=== PATIENT | female | born 1970 | race Caucasian/White ===

== ENCOUNTER → 2017-12-19 14:56 | Outpatient (CLI) | payer BC, SELFPAY ==
[2017-12-19 16:05] LABS: ALB/GLOB Ratio 1.2 RATIO (0.9-2.4); AST(SGOT) 10 U/L (15-37); Alanine Aminotransfer ALT/SGPT 22 U/L (13-56); Albumin, Serum 3.9 g/dL (3.2-5.0); Alkaline Phosphatase 49 U/L (45-117); Anion Gap 10 (5-15); BUN 17 mg/dL (7-18); BUN/Creat Ratio 20.6 RATIO (10-20); Calcium,Total 8.6 mg/dL (8.5-10.1); Chloride 104 mmol/L (98-107); Creatinine, Serum 0.82 mg/dL (0.55-1.02); EST Glomerular Filtration Rate 78 mL/min (>60); Est Glom Filt Rate - Afr Amer 94 mL/min (>60); Globulin 3.3 g/dL (2.2-4.2); Glucose 97 mg/dL (74-106); Potassium 3.4 mmol/L (3.5-5.1); Protein, Total 7.2 g/dL (6.4-8.2); Sodium Level 142 mmol/L (136-145)
[2017-12-19 16:13] LABS: Vitamin D,25 Hydroxy 73.1 ng/mL (19.95-100.01)
== END ==
PROVIDERS: Family Provider Internal Medicine; PCP Internal Medicine; Visit Provider Internal Medicine Endocrinology, Diabetes & Metabolism
DX: M85.9 Disorder of bone density and structure, unspecified (principal); E55.9 Vitamin D deficiency, unspecified; E83.42 Hypomagnesemia
CPT/HCPCS: 36415; 80053; 82306; 83735

== ENCOUNTER → 2018-02-20 13:35 | Outpatient (CLI) | payer BC, SELFPAY ==
--- NOTE | 2018-02-20 13:37 | BI_ITS ---
MAMMOGRAPHY - BILATERAL SCREENING REASON FOR EXAM: Female, 48 years old. Routine annual screening examination. PERTINENT HISTORY: Non-contributory. Prior right breast ultrasound biopsy. TECHNIQUE: Digital bilateral breast renny (3D mammographic acquisition) in the CC and MLO projections. 2-D mediolateral oblique (MLO) and craniocaudad (CC) views of both breasts were obtained. CAD: Full Field Digital Mammography with Computer Added Detection was performed. COMPARISON: Comparison is made with prior examination dated June 06, 2017 and October 08, 2016. FINDINGS: Breast Composition: The breasts are extremely dense, which lowers the sensitivity of mammography. There are no dominant masses or suspicious calcifications. A tissue clip marker is seen in the lateral retroareolar region of the right breast. Stable bilateral benign-appearing breast calcifications. No other significant abnormalities are identified. There has been no significant change since the prior study. BI/SCREENING MAMM (CAD), BILAT IMPRESSION: Stable bilateral screening mammogram. Yearly follow-up mammogram recommended. (A) ASSESSMENT CATEGORY: BIRADS Category 2: Benign. A letter regarding these results will be sent to the patient by the facility within 30 days. Approximately 10% of breast cancers are not detected by mammography. A normal mammogram should not delay biopsy of a clinically suspicious abnormality. [id number] Electronically Signed: Paulie Carrillo MD at 15:46 EDT Tel [phone], Service support ,
== END ==
PROVIDERS: Family Provider Internal Medicine; PCP Internal Medicine; Visit Provider Obstetrics & Gynecology
DX: Z12.31 Encounter for screening mammogram for malignant neoplasm of breast (principal)
CPT/HCPCS: 77062; 77063; 77067; G0279

== ENCOUNTER → 2018-07-28 07:08 | Outpatient (CLI) | payer BC, SELFPAY ==
[2018-07-28 11:11] LABS: ALB/GLOB Ratio 0.9 RATIO (0.9-2.4); AST(SGOT) 9 U/L (15-37); Alanine Aminotransfer ALT/SGPT 20 U/L (13-56); Albumin, Serum 3.5 g/dL (3.2-5.0); Alkaline Phosphatase 66 U/L (45-117); Anion Gap 9 (5-15); BUN 20 mg/dL (7-18); Calcium,Total 8.8 mg/dL (8.5-10.1); Chloride 105 mmol/L (98-107); Creatinine, Serum 0.65 mg/dL (0.55-1.02); EST Glomerular Filtration Rate 103 mL/min (>60); Est Glom Filt Rate - Afr Amer 125 mL/min (>60); Globulin 3.7 g/dL (2.2-4.2); Glucose 74 mg/dL (74-106); Magnesium 2.2 mg/dL (1.6-2.6); Potassium 4.1 mmol/L (3.5-5.1); Protein, Total 7.2 g/dL (6.4-8.2); Sodium Level 142 mmol/L (136-145); Thyroid Stim Hormone (TSH) 1.66 uIU/mL (0.358-3.74)
[2018-07-29 12:11] LABS: Vitamin D,25 Hydroxy 58.1 ng/mL (29.95-100.01)
== END ==
PROVIDERS: Family Provider Internal Medicine; PCP Internal Medicine; Visit Provider Internal Medicine Endocrinology, Diabetes & Metabolism
DX: E04.9 Nontoxic goiter, unspecified (principal); E55.9 Vitamin D deficiency, unspecified; E61.2 Magnesium deficiency
CPT/HCPCS: 36415; 80053; 82306; 83735; 84443

== ENCOUNTER → 2019-02-03 11:22 | Outpatient (CLI) | payer BC, SELFPAY ==
[2019-02-06 16:56] LABS: HPV Reflexed? NOT INDICATED
== END ==
PROVIDERS: Visit Provider Obstetrics & Gynecology
DX: Z12.4 Encounter for screening for malignant neoplasm of cervix (principal)
CPT/HCPCS: 88175; G0145

== ENCOUNTER → 2019-02-23 | Outpatient (CLI) | payer BC, SELFPAY ==
--- NOTE | 2019-02-23 17:17 | RAD_ITS ---
STUDY: X-RAY CHEST REASON FOR EXAM: Female, 49 years old. Cough and chest pain TECHNIQUE: Frontal and lateral views of the chest. COMPARISON: October 03, 2017 FINDINGS: Lungs are hyperaerated. The lungs are clear and expanded. There is no demonstrated pleural abnormality. Normal size heart. Normal mediastinum and yoanna. Normal visualized pulmonary arteries. Normal visualized aortic arch and descending thoracic aorta. Normal visualized thoracic spine. Normal visualized ribs, clavicles, and shoulders. There is no demonstrated abnormality of the visualized soft tissue structures of the upper abdomen. RAD/Chest PA and Lateral IMPRESSION: Small airways disease Electronically Signed: Armando Rubalcava MD at 18:50 EDT , Service support ,
== END | disposition home or self-care (01) ==
LOC: MTRAD 17:16
PROVIDERS: Family Provider Internal Medicine; PCP Internal Medicine; Referring Provider Physician Assistant Surgical; Visit Provider Physician Assistant Surgical
DX: R05 Cough (principal)
CPT/HCPCS: 71046

== ENCOUNTER → 2019-03-05 | Outpatient (CLI) | payer BC, SELFPAY ==
--- NOTE | 2019-03-05 07:05 | BI_ITS ---
MAMMOGRAPHY - BILATERAL SCREENING REASON FOR EXAM: Female, 49 years old. Routine annual screening examination. PERTINENT HISTORY: Non-contributory. Remote right ultrasound-guided cyst aspiration. TECHNIQUE: Digital bilateral breast renny (3D mammographic acquisition) in the CC and MLO projections. 2-D mediolateral oblique (MLO) and craniocaudad (CC) views of both breasts were obtained. CAD: Full Field Digital Mammography with Computer Added Detection was performed. COMPARISON: Comparison is made with prior study dated February 20, 2018 and June 06, 2017. FINDINGS: Breast Composition: The breasts are extremely dense, which lowers the sensitivity of mammography. There are no dominant masses or suspicious calcifications. Stable scattered bilateral calcifications. A tissue clip marker is once again seen in the lateral retroareolar region of the right breast. No other significant abnormalities are identified. There has been no significant change since the prior study. BI/SCREENING MAMM (CAD), BILAT IMPRESSION: Stable bilateral screening mammogram. Yearly follow-up mammogram recommended. (A) ASSESSMENT CATEGORY: BIRADS Category 2: Benign. A letter regarding these results will be sent to the patient by the facility within 30 days. Approximately 10% of breast cancers are not detected by mammography. A normal mammogram should not delay biopsy of a clinically suspicious abnormality. [id number] Electronically Signed: Paulie Carrillo, at 10:15 EDT , Service support ,
== END | disposition home or self-care (01) ==
LOC: OPBI 07:30
PROVIDERS: Referring Provider Obstetrics & Gynecology; Visit Provider Obstetrics & Gynecology
DX: Z12.31 Encounter for screening mammogram for malignant neoplasm of breast (principal)
CPT/HCPCS: 77063; 77067

== ENCOUNTER → 2019-03-12 | Outpatient (CLI) | payer BC, SELFPAY ==
[2019-03-11 17:56] VITALS: BMI 20.3
[2019-03-12 14:32] LABS: ALB/GLOB Ratio 1.1 RATIO (0.9-2.4); AST(SGOT) 15 U/L (15-37); Alanine Aminotransfer ALT/SGPT 18 U/L (13-56); Albumin, Serum 3.8 g/dL (3.2-5.0); Alkaline Phosphatase 78 U/L (45-117); Anion Gap 6 (5-15); BUN 16 mg/dL (7-18); BUN/Creat Ratio 24.7 RATIO (10-20); Chloride 105 mmol/L (98-107); Creatinine, Serum 0.65 mg/dL (0.55-1.02); EST Glomerular Filtration Rate 102 mL/min (>60); Est Glom Filt Rate - Afr Amer 124 mL/min (>60); Globulin 3.4 g/dL (2.2-4.2); Glucose 83 mg/dL (74-106); Potassium 3.8 mmol/L (3.5-5.1); Protein, Total 7.2 g/dL (6.4-8.2); Sodium Level 141 mmol/L (136-145)
[2019-03-12 14:39] LABS: Vitamin D,25 Hydroxy 73.8 ng/mL (29.95-100.01)
== END | disposition home or self-care (01) ==
LOC: MTLAB 13:19
PROVIDERS: Family Provider Internal Medicine; PCP Internal Medicine; Referring Provider Internal Medicine Endocrinology, Diabetes & Metabolism; Visit Provider Internal Medicine Endocrinology, Diabetes & Metabolism
DX: E55.9 Vitamin D deficiency, unspecified (principal); M85.9 Disorder of bone density and structure, unspecified
CPT/HCPCS: 36415; 80053; 82306

== ENCOUNTER → 2019-03-19 | Outpatient (CLI) | payer BC, SELFPAY ==
[2019-03-11 17:56] VITALS: BMI 20.3
[2019-03-19 10:45] LABS: Vitamin B12 787 pg/mL (211-911)
[2019-03-19 10:51] LABS: CRP, High Sensitivity Cardiac 0.83 mg/L; Cholesterol 232 mg/dL (200); High Density Lipoprotein 88 mg/dL; Triglycerides 63 mg/dL; Very Low Density Lipoprotein 13 mg/dL (5-40)
== END | disposition home or self-care (01) ==
LOC: MTLAB 07:02
PROVIDERS: Family Provider Internal Medicine; PCP Internal Medicine; Referring Provider Internal Medicine; Visit Provider Internal Medicine
DX: E78.5 Hyperlipidemia, unspecified (principal); E55.9 Vitamin D deficiency, unspecified; R74.8 Abnormal levels of other serum enzymes; R79.82 Elevated C-reactive protein (CRP)
CPT/HCPCS: 36415; 80061; 82607; 86141

== ENCOUNTER → 2019-06-18 | Outpatient (CLI) | payer BC, SELFPAY ==
[2019-03-11 17:56] VITALS: BMI 20.3
[2019-06-18 10:04] LABS: Absolute Lymphocyte Count 1.17 X10^3/uL (0.83-4.51); Absolute Neutrophil Count 1.8 X10^3/uL (2.0-7.7); Basophil# 0.04 X10^3/uL; Basophil% 1.2 % (0-1); Eosinophil# 0.08 X10^3/uL; Eosinophils% 2.4 % (0-5); Hemoglobin 13.7 g/dL (12.0-15.0); Lymphocyte # 1.17 X10^3/ul (4.0); Lymphocyte % 34.5 % (19-41); Mean Corp Hgb Conc 32.6 g/dL (32-36); Mean Corpuscular Hgb 31.2 pg (27.0-32.0); Mean Corpuscular Volume 95.7 fL (81-99); Mean Platelet Vol. 11.2 fl (6.2-12.0); Monocyte# 0.25 X10^3/uL; Monocyte% 7.4 % (0-10); NRBC Flagged by Analyzer 0 % (0-5); Neutrophil # 1.84 X10^3/uL (2.7-7.7); Neutrophil % 54.2 % (47-70); Platelet Count 206 K/mm3 (150-450); RBC Distribution Width CV 12.2 % (11.6-14.6); RBC Distribution Width SD 42.6 fl (35.1-43.9); Red Blood Count 4.39 M/mm3 (4.2-5.4); White Blood Count 3.4 K/mm3 (4.4-11.0)
[2019-06-18 10:25] LABS: ALB/GLOB Ratio 0.8 RATIO (0.9-2.4); AST(SGOT) 10 U/L (15-37); Alanine Aminotransfer ALT/SGPT 16 U/L (13-56); Albumin, Serum 3.3 g/dL (3.2-5.0); Alkaline Phosphatase 62 U/L (45-117); Anion Gap 7 (5-15); BUN 12 mg/dL (7-18); BUN/Creat Ratio 19.1 RATIO (10-20); Chloride 105 mmol/L (98-107); Cholesterol 183 mg/dL (200); Creatinine, Serum 0.63 mg/dL (0.55-1.02); EST Glomerular Filtration Rate 106 mL/min (>60); Est Glom Filt Rate - Afr Amer 128 mL/min (>60); Globulin 3.9 g/dL (2.2-4.2); Glucose 83 mg/dL (74-106); High Density Lipoprotein 87 mg/dL; Protein, Total 7.2 g/dL (6.4-8.2); Sodium Level 142 mmol/L (136-145); Triglycerides 50 mg/dL; Very Low Density Lipoprotein 10 mg/dL (5-40)
[2019-06-21 10:26] LABS: Rubeola IgG Ab < 25.0 AU/mL (Immune >29.9)
== END | disposition home or self-care (01) ==
LOC: MTLAB 07:03
PROVIDERS: Family Provider Internal Medicine; PCP Internal Medicine; Referring Provider Internal Medicine; Visit Provider Internal Medicine
DX: Z01.84 Encounter for antibody response examination (principal); E78.5 Hyperlipidemia, unspecified; M81.0 Age-related osteoporosis without current pathological fracture
CPT/HCPCS: 36415; 80053; 80061; 85025; 86765

== ENCOUNTER → 2019-07-14 | Outpatient (CLI) | payer BC, SELFPAY ==
[2019-03-11 17:56] VITALS: BMI 20.3
--- NOTE | 2019-07-14 07:40 | ECHOD_ITS ---
Reason For Study: Abnormal EKG Procedure This was a 2D Doppler, Color Flow transthoracic echocardiogram. Exam performed in department. Left Ventricle Normal size and thickness. The estimated ejection fraction is 65 %. Stage 1 diastolic dysfunction. No regional wall motion abnormalities noted. Right Ventricle Normal size and thickness. A moderator band is seen in the right ventricle. Normal systolic function. Atria Normal left atrium. Normal right atrium. Normal atrial septum. Mitral Valve The mitral valve is structurally normal. No prolapse or stenosis seen. Tricuspid Valve Normal tricuspid valve. Trivial tricuspid valve insufficiency. Right ventricular systolic pressure estimated to be 27 mmHg. Aortic Valve Normal aortic valve. Trisinus/trileaflet aortic valve. Pulmonic Valve Normal pulmonic valve. Great Vessels Normal aortic root. Normal arch. Normal inferior vena cava. Inferior vena cava collapse with sniff. Pericardium/Pleural No pericardial effusion. MMode/2D Measurements & Calculations LVIDd: 4.2 cm IVSd: 0.87 cm LA dimension: 3.2 cm LVIDs: 3.1 cm LVPWd: 0.88 cm RVDd: 2.7 cm FS: 26.5 % LAV(MOD-bp): 28.9 ml LA A4 area: 15.1 cm2 RA A4 area: 11.6 cm2 LAV(MOD-bp) Indexed: 17.7 ml/m2 LAV(MOD-sp2): 16.3 ml LAV(MOD-sp4): 37.3 ml Time Measurements MV dec time: 0.26 sec Doppler Measurements & Calculations MV E max jett: 74.4 cm/sec Lat Peak E' Jett: 12.9 cm/sec Med Peak E' Jett: 8.3 cm/sec MV A max jett: 96.0 cm/sec E/E' lat: 5.8 E/E' med: 8.9 MV E/A: 0.78 MV V2 max: 96.4 cm/sec MV P1/2t max jett: 96.4 cm/sec Ao V2 max: 125.2 cm/sec MV max P.7 mmHg MV P1/2t: 64.5 msec Ao max P.3 mmHg MV V2 mean: 56.6 cm/sec MV dec slope: 437.8 cm/sec2 Ao V2 mean: 89.1 cm/sec MV mean P.5 mmHg MVA(P1/2t): 3.4 cm2 Ao mean P.5 mmHg MV V2 VTI: 21.6 cm Ao V2 VTI: 25.4 cm LV V1 max: 107.3 cm/sec PA V2 max: 87.6 cm/sec TR max jett: 193.5 cm/sec LV V1 max P.6 mmHg TR max P.0 mmHg LV V1 mean P.2 mmHg LV V1 mean: 68.3 cm/sec LV V1 VTI: 21.8 cm Interpretation Summary The estimated ejection fraction is 65 %. Stage 1 diastolic dysfunction. Trivial tricuspid valve insufficiency. Right ventricular systolic pressure estimated to be 27 mmHg. Compared to echo report dated 12/12/2017, no appreciale changes noted. Ordering Physician: Romy Alvarado Referring Physician: Romy Alvarado Performed By: Brett Junior RCS
== END | disposition home or self-care (01) ==
LOC: CVS 07:39
PROVIDERS: Family Provider Internal Medicine; PCP Internal Medicine; Referring Provider Internal Medicine; Visit Provider Internal Medicine
DX: R94.31 Abnormal electrocardiogram [ECG] [EKG] (principal)
CPT/HCPCS: 93225; 93226; 93306

== ENCOUNTER → 2019-07-30 16:28 | Outpatient (CLI) | payer BC, SELFPAY ==
[2019-03-11 17:56] VITALS: BMI 20.3
[2019-07-30 18:15] LABS: ALB/GLOB Ratio 1.1 RATIO (0.9-2.4); AST(SGOT) 12 U/L (15-37); Alanine Aminotransfer ALT/SGPT 21 U/L (13-56); Albumin, Serum 3.7 g/dL (3.2-5.0); Alkaline Phosphatase 68 U/L (45-117); Anion Gap 7 (5-15); BUN 10 mg/dL (7-18); BUN/Creat Ratio 12.8 RATIO (10-20); Chloride 106 mmol/L (98-107); Creatinine, Serum 0.78 mg/dL (0.55-1.02); EST Glomerular Filtration Rate 82 mL/min (>60); Est Glom Filt Rate - Afr Amer 99 mL/min (>60); Globulin 3.5 g/dL (2.2-4.2); Glucose 89 mg/dL (74-106); Magnesium 2.1 mg/dL (1.6-2.6); Potassium 3.5 mmol/L (3.5-5.1); Protein, Total 7.2 g/dL (6.4-8.2); Sodium Level 142 mmol/L (136-145)
[2019-07-30 18:22] LABS: PTHIN 37.6 pg/mL (18.4-80.1)
[2019-07-30 18:23] LABS: Vitamin D,25 Hydroxy 55.3 ng/mL (29.95-100.01)
== END ==
PROVIDERS: Family Provider Internal Medicine; PCP Internal Medicine; Referring Provider Internal Medicine Endocrinology, Diabetes & Metabolism; Visit Provider Internal Medicine Endocrinology, Diabetes & Metabolism
DX: E55.9 Vitamin D deficiency, unspecified (principal); M85.9 Disorder of bone density and structure, unspecified; M81.0 Age-related osteoporosis without current pathological fracture; E61.2 Magnesium deficiency
CPT/HCPCS: 36415; 80053; 82306; 83735; 83970

== ENCOUNTER → 2019-07-31 10:01 | Outpatient (CLI) | payer BC, SELFPAY ==
[2019-03-11 17:56] VITALS: BMI 20.3
[2019-08-02 20:07] LABS: Creatinine, Urine 142.4 mg/dL (Not Estab.); N-Telopeptide, Urine 858 nmol BCE (Not Estab.)
[2019-08-03 11:15] LABS: NTX:Creatinine Ratio, Urine 68 (0-89)
== END ==
PROVIDERS: Family Provider Internal Medicine; PCP Internal Medicine; Visit Provider Internal Medicine Endocrinology, Diabetes & Metabolism
DX: E55.9 Vitamin D deficiency, unspecified (principal); M85.9 Disorder of bone density and structure, unspecified; M81.0 Age-related osteoporosis without current pathological fracture; E61.2 Magnesium deficiency
CPT/HCPCS: 82523

== ENCOUNTER → 2020-04-25 07:02 | Outpatient (CLI) | payer OTHER, SELFPAY ==
[2019-03-11 17:56] VITALS: BMI 20.3
--- NOTE | 2020-04-25 07:03 | BI_ITS ---
MAMMOGRAPHY - BILATERAL SCREENING REASON FOR EXAM: Female, 50 years old. Routine annual screening examination. PERTINENT HISTORY: Non-contributory. Prior right ultrasound-guided breast biopsy. TECHNIQUE: Digital bilateral breast tasia (3D mammographic acquisition) in the CC and MLO projections. 2-D mediolateral oblique (MLO) and craniocaudad (CC) views of both breasts were obtained. CAD: Full Field Digital Mammography with Computer Added Detection was performed. COMPARISON: Comparison is made with prior examination dated March 05, 2019 and February 20, 2018. FINDINGS: Breast Composition: The breasts are extremely dense, which lowers the sensitivity of mammography. There are no dominant masses or suspicious calcifications. Stable bilateral calcifications. No focal cluster is seen. A tissue clip marker is once again seen in the lateral retroareolar region of the right breast. No other significant abnormalities are identified. There has been no significant change since the prior study. BI/SCREEN MAMM (CAD) W/TASIA BILAT IMPRESSION: Stable bilateral screening mammogram. Yearly follow-up mammogram recommended. (A) ASSESSMENT CATEGORY: BIRADS Category 2: Benign. A letter regarding these results will be sent to the patient by the facility within 30 days. Approximately 10% of breast cancers are not detected by mammography. A normal mammogram should not delay biopsy of a clinically suspicious abnormality. [id number] Electronically Signed: Paulie Carrillo, at 8:16 EDT , Service support ,
== END ==
PROVIDERS: PCP Internal Medicine; Referring Provider Internal Medicine; Visit Provider Internal Medicine
DX: Z12.31 Encounter for screening mammogram for malignant neoplasm of breast (principal)
CPT/HCPCS: 77063; 77067

== ENCOUNTER → 2020-08-24 14:50 | Outpatient (CLI) | payer OTHER, SELFPAY ==
[2019-03-11 17:56] VITALS: BMI 20.3
--- NOTE | 2020-08-24 14:58 | BD_ITS ---
STUDY: DUAL ENERGY X-RAY ABSORPTIOMETRY / DXA REASON FOR EXAM: Female, 50 years old. 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 COMPARISON: None. FINDINGS: Lumbar Spine (L1-L4): g/cm2 (0.944) / T-score (-2.0) / Z-score (-1.4) Findings are suggestive of osteopenia with a moderate fracture risk. Left Femur Total: g/cm2 (0.695) / T-score (-2.5) / Z-score (-1.9) Left Femoral Neck: g/cm2 (0.598) / T-score (-3.2) / Z-score (-2.3) Right Femur Total: g/cm2 (0.759) / T-score (-2.0) / Z-score (-1.4) Right Femoral Neck: g/cm2 (0.654) / T-score (-2.8) / Z-score (-1.9) BD/Dexa Bone Density Study IMPRESSION: The patient is considered osteoporotic as outlined below according to World [employer] Organization (WHO) criteria with a high fracture risk. Reference Information: The T-score is the number of standard deviations above or below the standard which is normal for young adults at their peak bone mineral density. The World Health Organization (WHO) interprets the T-scores as follows: Above -1 Normal bone density Between -1 and -2.5 Osteopenia Equal to / or below -2.5 Osteoporosis As a practical clinical guideline, osteopenia may be graded as follows: Mild -1 through -1.5 Moderate -1.6 through -2.0 Severe -2.1 through -2.4 The Z-score is the number of standard deviations above or below age-matched controls. A Z-score of less than -1.5 would be considered abnormal. References: 1. NIH Osteoporosis and Related Bone Diseases www osteo.org 2. International Society for Clinical Densitometry www iscd.org 3. National Osteoporosis Foundation www nof.org Electronically Signed: Paulie Carrillo, at 13:42 EDT , Service support ,
== END ==
PROVIDERS: PCP Internal Medicine; Referring Provider Internal Medicine; Visit Provider Internal Medicine
DX: M81.0 Age-related osteoporosis without current pathological fracture (principal)
CPT/HCPCS: 77080

== ENCOUNTER → 2020-09-01 06:50 | Outpatient (CLI) | payer OTHER, SELFPAY ==
[2019-03-11 17:56] VITALS: BMI 20.3
[2020-09-01 07:34] LABS: Absolute Lymphocyte Count 1.11 X10^3/uL (0.83-4.51); Basophil# 0.03 X10^3/uL; Basophil% 0.9 % (0-1); Eosinophil# 0.06 X10^3/uL; Eosinophils% 1.7 % (0-5); Hematocrit 44.1 % (37-47); Lymphocyte # 1.11 X10^3/ul (4.0); Lymphocyte % 32.2 % (19-41); Mean Corp Hgb Conc 31.7 g/dL (32-36); Mean Corpuscular Hgb 31.1 pg (27.0-32.0); Mean Platelet Vol. 11.1 fl (6.2-12.0); Monocyte# 0.25 X10^3/uL; Monocyte% 7.2 % (0-10); NRBC Flagged by Analyzer 0 % (0-5); Neutrophil # 1.99 X10^3/uL (2.7-7.7); Neutrophil % 57.7 % (47-70); Platelet Count 215 K/mm3 (150-450); RBC Distribution Width CV 12.1 % (11.6-14.6); RBC Distribution Width SD 43.8 fl (35.1-43.9); White Blood Count 3.5 K/mm3 (4.4-11.0)
[2020-09-01 08:17] LABS: ALB/GLOB Ratio 1.1 RATIO (0.9-2.4); AST(SGOT) 11 U/L (15-37); Alanine Aminotransfer ALT/SGPT 18 U/L (13-56); Albumin, Serum 3.7 g/dL (3.2-5.0); Alkaline Phosphatase 75 U/L (45-117); Anion Gap 4 (5-15); BUN 13 mg/dL (7-18); BUN/Creat Ratio 18.5 RATIO (10-20); Calcium,Total 8.7 mg/dL (8.5-10.1); Chloride 104 mmol/L (98-107); Cholesterol 234 mg/dL (200); EST Glomerular Filtration Rate 93 mL/min (>60); Est Glom Filt Rate - Afr Amer 112 mL/min (>60); Globulin 3.5 g/dL (2.2-4.2); Glucose 80 mg/dL (74-106); High Density Lipoprotein 93 mg/dL; Potassium 3.8 mmol/L (3.5-5.1); Protein, Total 7.2 g/dL (6.4-8.2); Sodium Level 138 mmol/L (136-145); Thyroid Stim Hormone (TSH) 2.02 uIU/mL (0.358-3.74); Triglycerides 54 mg/dL; Very Low Density Lipoprotein 11 mg/dL (5-40)
[2020-09-01 09:18] LABS: Vitamin B12 525 pg/mL (211-911); Vitamin D,25 Hydroxy 48.3 ng/mL
== END ==
PROVIDERS: PCP Internal Medicine; Referring Provider Internal Medicine; Visit Provider Internal Medicine
DX: E78.5 Hyperlipidemia, unspecified (principal); R74.8 Abnormal levels of other serum enzymes; K31.84 Gastroparesis; R00.2 Palpitations; M81.0 Age-related osteoporosis without current pathological fracture
CPT/HCPCS: 36415; 80053; 80061; 82306; 82607; 84443; 85025

== ENCOUNTER → 2020-09-11 06:49 | Outpatient (CLI) | payer OTHER, SELFPAY ==
[2019-03-11 17:56] VITALS: BMI 20.3
[2020-09-11 07:23] LABS: Erythrocyte Sedimentation Rate 11 mm/hr (0-30)
[2020-09-11 08:02] LABS: (24 HR) Urine Calcium 193.5 mg/24 HR (42.0-353.0); 24HR UR TOTAL VOLUME 900 ml; Calcium Urine pH Range 2; Urine Calcium (Random) 21.5 (Not Estab.)
[2020-09-11 09:00] LABS: CRP < 2.90 mg/L (0.0-3.0); Phosphorus 3.4 mg/dL (2.5-4.9)
[2020-09-11 17:32] LABS: PTHIN 56.2 pg/mL (18.4-80.1)
[2020-09-13 14:09] LABS: PROEL- A/G Ratio 1.4 (0.7-1.7); PROEL- Albumin 3.9 g/dL (2.9-4.4); PROEL- Alpha-1 Globulin 0.2 g/dL (0.0-0.4); PROEL- Alpha-2 Globulin 0.7 g/dL (0.4-1.0); PROEL- Gamma Globulin 0.8 g/dL (0.4-1.8); PROEL- Globulin, Total 2.7 g/dL (2.2-3.9); PROEL- TOTAL PROTEIN 6.6 g/dL (6.0-8.5); PROELU- Albumin, Urine 31.2 % (.); PROELU- Alpha-1-Globulin,Ur 0.7 % (.); PROELU- Alpha-2-Globulin,Ur 16.4 % (.); PROELU- Beta Globulin, Ur 26.2 % (.); PROELU- Gamma Globulin, Ur 25.6 % (.); Total Protein, Ur 15.1 mg/dL (Not Estab.)
== END ==
PROVIDERS: PCP Internal Medicine; Referring Provider Internal Medicine; Visit Provider Internal Medicine
DX: M81.0 Age-related osteoporosis without current pathological fracture (principal); M25.50 Pain in unspecified joint
CPT/HCPCS: 36415; 81050; 82340; 83970; 84100; 84165; 84166; 85652; 86140

== ENCOUNTER → 2020-09-12 12:13 | Outpatient (CLI) | payer OTHER, SELFPAY ==
[2019-03-11 17:56] VITALS: BMI 20.3
--- NOTE | 2020-09-12 12:15 | NM_ITS ---
Gastric emptying study INDICATION: Abdominal pain. TECHNIQUE: After the ministration 1.1 mCi of technetium 99m sulfur colloid in a meal of oatmeal orally, multiple scintigraphic images of the abdomen were obtained. Furthermore, counts were obtained and a gastric emptying curve was plotted. FINDINGS: Normal uptake is seen within stomach with passage through the duodenum into the small bowel. Next After 1 hour, there is a 62% gastric retention which is normal. T1 half is 73 minutes which is normal. IMPRESSION: Normal gastric emptying. Electronically Signed: Richardson Rachel MD at 14:33 EDT Tel , Service support , NM/Gastric Emptying Study
== END ==
PROVIDERS: PCP Internal Medicine; Referring Provider Internal Medicine; Visit Provider Internal Medicine
DX: K31.84 Gastroparesis (principal)
CPT/HCPCS: 78264; A9541

== ENCOUNTER → 2021-04-03 06:48 | Outpatient (CLI) | payer OTHER, SELFPAY ==
[2020-09-22 15:49] VITALS: BMI 21.9
[2021-04-03 07:47] LABS: Absolute Lymphocyte Count 0.94 X10^3/uL (0.83-4.51); Absolute Neutrophil Count 1.8 X10^3/uL (2.0-7.7); Basophil# 0.02 X10^3/uL; Basophil% 0.6 % (0-1); Eosinophil# 0.07 X10^3/uL; Eosinophils% 2.3 % (0-5); Hematocrit 44.2 % (37-47); Hemoglobin 14.1 g/dL (12.0-15.0); Lymphocyte # 0.94 X10^3/ul (0.83-4.51); Lymphocyte % 30.5 % (19-41); Mean Corp Hgb Conc 31.9 g/dL (32-36); Mean Corpuscular Volume 97.1 fL (81-99); Mean Platelet Vol. 11.4 fl (6.2-12.0); Monocyte# 0.24 X10^3/uL; Monocyte% 7.8 % (0-10); NRBC Flagged by Analyzer 0 % (0-5); Neutrophil % 58.5 % (47-70); Platelet Count 226 K/mm3 (150-450); Red Blood Count 4.55 M/mm3 (4.2-5.4); White Blood Count 3.1 K/mm3 (4.4-11.0)
[2021-04-03 08:09] LABS: ALB/GLOB Ratio 1.1 RATIO (0.9-2.4); AST(SGOT) 16 U/L (15-37); Alanine Aminotransfer ALT/SGPT 24 U/L (13-56); Albumin, Serum 3.6 g/dL (3.2-5.0); Alkaline Phosphatase 92 U/L (45-117); Anion Gap 5 (5-15); BUN 12 mg/dL (7-18); BUN/Creat Ratio 21.4 RATIO (10-20); CRP, High Sensitivity Cardiac 1.78 mg/L; Calcium,Total 8.8 mg/dL (8.5-10.1); Chloride 106 mmol/L (98-107); Cholesterol 223 mg/dL (200); Creatinine, Serum 0.56 mg/dL (0.55-1.02); EST Glomerular Filtration Rate 120 mL/min (>60); Est Glom Filt Rate - Afr Amer 145 mL/min (>60); Globulin 3.4 g/dL (2.2-4.2); Glucose 79 mg/dL (74-106); High Density Lipoprotein 98 mg/dL; Sodium Level 141 mmol/L (136-145); Triglycerides 54 mg/dL; Very Low Density Lipoprotein 11 mg/dL (5-40)
== END ==
PROVIDERS: PCP Internal Medicine; Referring Provider Internal Medicine; Visit Provider Internal Medicine
DX: R79.82 Elevated C-reactive protein (CRP) (principal); E78.5 Hyperlipidemia, unspecified; R00.2 Palpitations
CPT/HCPCS: 36415; 80053; 80061; 85025; 86141

== ENCOUNTER → 2021-04-19 06:00 | Outpatient (CLI) | payer OTHER, SELFPAY ==
[2020-09-22 15:49] VITALS: BMI 21.9
--- NOTE | 2021-04-19 13:24 | STRESSREP ---
Stress Test Report Date: 04/19/2021 Procedure: Exercise tolerance test/imaging study Indications: Dyspnea on exertion, palpitations Consent: Per the patient Procedure: The patient exercised on a Hector protocol for 4 minutes achieving a peak heart rate of 160 bpm (95% predicted maximal heart rate) with a peak blood pressure 164/80 mmHg and a peak MET capacity of 5.8 METs. The baseline ECG demonstrated normal sinus rhythm, about [address] depressions in the inferior and lateral leads. The peak exercise ECG demonstrated sinus tachycardia with about 1 to [address] depressions in the inferior and lateral leads. EKG during recovery revealed downsloping ST depressions in the inferior and lateral leads that are about 1 to 1.5 mm. [There were no cardiac dysrhythmias pretest, during exercise, or recovery]. The functional capacity was considered decreased for age. There was [no complaint of chest discomfort during exercise or recovery]. The examination was discontinued secondary to shortness of breath. Impression: 1. Technically adequate (percent predicted maximal heart rate greater than 85%) exercise tolerance test 2. Stress test is[equivocal] for exercise-induced EKG changes of ischemia due to presence of baseline ST depressions 3. The test test is negative for exercise-induced chest pain 4. Functional capacity is decreased for age 5. Nuclear images pending Myocardial perfusion imaging study: Technique: The patient was injected with 10.5 mCi of technetium 99m Cardiolite and subsequently rest SPECT Cardiolite nuclear imaging was obtained in the horizontal long, vertical long, and short axis views. The patient exercised on a Hector protocol. Please see above for details. The patient was injected with 32.8 mCi of technetium 99m Cardiolite and subsequently stress SPECT Cardiolite nuclear imaging was obtained in the horizontal long, vertical long, and short axis views. A gated Cardiolite study at peak stress was obtained. Interpretation: Rest and stress SPECT Cardiolite nuclear imaging status post realignment, normalization, and attenuation correction, demonstrates overall normal myocardial radioisotope uptake. The gated Cardiolite study demonstrates no significant regional wall motion abnormalities. The reported LVEF is greater than 70%. Impression: 1. There is no evidence of significant ischemia or infarction. 2. The gated Cardiolite study reports an LVEF of greater than 70%. This note was generated with bettermarks software. It may contain incorrect words, spelling, and punctuation that were not noted in checking the note before signing.
== END ==
PROVIDERS: PCP Internal Medicine; Referring Provider Internal Medicine; Visit Provider Internal Medicine
DX: R06.00 Dyspnea, unspecified (principal)
CPT/HCPCS: 78452; 93017; A9500; A4216

== ENCOUNTER → 2021-04-27 07:00 | Outpatient (CLI) | payer OTHER, SELFPAY ==
[2020-09-22 15:49] VITALS: BMI 21.9
--- NOTE | 2021-04-27 07:01 | BI_ITS ---
MAMMOGRAPHY - BILATERAL SCREENING REASON FOR EXAM: Female, 51 years old. Routine annual screening examination. PERTINENT HISTORY: Unknown. TECHNIQUE: Digital bilateral breast tasia (3D mammographic acquisition) in the CC and MLO projections. 2-D mediolateral oblique (MLO) and craniocaudad (CC) views of both breasts were obtained. CAD: Full Field Digital Mammography with Computer Added Detection was performed. COMPARISON: Comparison is made with prior study dated 04/25/2020 and 03/05/2019. FINDINGS: Breast Composition: The breasts are extremely dense, which lowers the sensitivity of mammography. There are no dominant masses or suspicious calcifications. Stable bilateral benign-appearing calcifications. No focal cluster is seen. A tissue clip marker from prior right ultrasound-guided breast biopsy is seen in the lateral retroareolar region of the right breast. No other significant abnormalities are identified. There has been no significant change since the prior study. BI/SCRN MAMM (CAD)W/TASIA BILAT IMPRESSION: Stable bilateral screening mammogram. Yearly follow-up mammogram recommended. (A) ASSESSMENT CATEGORY: BIRADS Category 2: Benign. A letter regarding these results will be sent to the patient by the facility within 30 days. Approximately 10% of breast cancers are not detected by mammography. A normal mammogram should not delay biopsy of a clinically suspicious abnormality. [id number] Electronically Signed: Paulie Carrillo MD at 8:21 EDT , Service support ,
== END ==
PROVIDERS: PCP Internal Medicine; Referring Provider Internal Medicine; Visit Provider Internal Medicine
DX: Z12.31 Encounter for screening mammogram for malignant neoplasm of breast (principal)
CPT/HCPCS: 77063; 77067

== ENCOUNTER 2021-05-30 22:40 | Emergency (ER) | payer OTHER, SELFPAY ==
[2020-09-22 15:49] VITALS: BMI 21.9
[2021-05-30 22:41] VITALS: BP 171/73; PULSE 100; RESP 18; TEMP 36.6; O2SAT 98; BMI 22.4
--- NOTE | 2021-05-30 22:55 | CT_ITS ---
STUDY: CT ABDOMEN AND PELVIS WITHOUT CONTRAST REASON FOR EXAM: Female, 51 years old. Pain Left flank pain ?? stone RADIATION DOSAGE (If Supplied By Facility): CTDIvol = ( 6.23 ) mGy, DLP = ( 287.73 ) mGycm TECHNIQUE: Transaxial images were obtained from the dome of the diaphragm to the symphysis pubis without oral contrast, and without intravenous contrast. Sagittal and coronal images were reconstructed. Individualized dose optimization techniques were used for this CT. COMPARISON: None. FINDINGS: The visualized lung bases are unremarkable. The visualized portions of the heart are within normal limits. There is 5.3 cm low-density mass in the right lobe of the liver. Normal gallbladder and extrahepatic biliary system. Normal spleen. Normal pancreas. Normal bilateral adrenal glands. Normal right kidney. There is mild left hydronephrosis with perinephric stranding. There is 0.2 cm left distal ureteral stone, series 2 image 133/166. Normal visualized stomach. Normal small intestine. Normal colon. The appendix is visualized and appears normal. Normal abdominal aorta. Normal inferior vena cava. Normal retroperitoneum. Normal urinary bladder. There is atrophy of the uterus. There is no free fluid in the abdomen or pelvis. Normal abdominal wall. Normal osseous structures. CT/Abdomen/Pelvis without Cont IMPRESSION: Left distal ureteral stone with hydronephrosis. Low density mass in the right lobe of the liver. Consider ultrasound and/or contrast-enhanced MRI or CT for further evaluation. Electronically Signed: Ronak Leonard MD at 23:38 EDT , Service support ,
[2021-05-30 22:56] LABS: Absolute Lymphocyte Count 2.53 X10^3/uL (0.83-4.51); Absolute Neutrophil Count 2.7 X10^3/uL (2.0-7.7); Basophil# 0.04 X10^3/uL; Basophil% 0.7 % (0-1); Eosinophil# 0.09 X10^3/uL; Eosinophils% 1.5 % (0-5); Hematocrit 42.6 % (37-47); Hemoglobin 13.9 g/dL (12.0-15.0); Lymphocyte # 2.53 X10^3/ul (0.83-4.51); Lymphocyte % 43.3 % (19-41); Mean Corp Hgb Conc 32.6 g/dL (32-36); Mean Corpuscular Hgb 30.5 pg (27.0-32.0); Mean Corpuscular Volume 93.6 fL (81-99); Mean Platelet Vol. 10.9 fl (6.2-12.0); Monocyte# 0.43 X10^3/uL; Monocyte% 7.4 % (0-10); NRBC Flagged by Analyzer 0 % (0-5); Neutrophil # 2.74 X10^3/uL (2.7-7.7); Neutrophil % 46.9 % (47-70); Platelet Count 228 K/mm3 (150-450); RBC Distribution Width CV 12.3 % (11.6-14.6); RBC Distribution Width SD 42.5 fl (35.1-43.9); Red Blood Count 4.55 M/mm3 (4.2-5.4); White Blood Count 5.8 K/mm3 (4.4-11.0)
--- NOTE | 2021-05-30 22:57 | ED.VIS.GI ---
HPI HPI - GI History of Present Illness Chief Complaint: Abd Pain Informant: patient Abdominal Pain/Flank Pain Onset: Today and Hours Context: Sudden Onset Quality: Sharp and Stabbing Location: LLQ and Left Flank Current Severity: Moderate Maximum Severity: Moderate Nausea/Vomiting/Emesis GI Symptom: Positive for Nausea and Vomiting Severity: Mild Diarrhea/Melena/Hematochezia GI Symptom: Negative for Diarrhea, Melena and Hematochezia Associated Symptoms Associated Symptoms: Positive for Dysuria and Frequency; Negative for Hematuria and Urgency Narrative Narrative: 51-year-old female prior kidney stone but was years ago and she does not remember much about that. She did not need it surgically removed. Said tonight just before 10:00 she woke up from a sound sleep with severe left flank and left lower quadrant abdominal pain. Associated nausea vomiting. Had frequency and mild dysuria earlier today. No gross hematuria. She denies any abdominal trauma. No fever or chills. No recent illness. She has had a prior cholecystectomy. She has a history of asthma and gastroparesis. Prior similar symptoms: Yes Recent Illness/Hospitalization: No [facility] Medical History (Updated 05/31/21 @ 01:[address] Shabbir Theodore MD) Asthma UNUSUAL FATIGUE Home Medications escitalopram oxalate 10 mg PO DAILY 08/21/16 [History Last Taken 08/21/16] albuterol sulfate 1 - 2 puff INHALATION Q4H PRN PRN 10/03/17 [History Last Taken Unknown] cholecalciferol (vitamin D3) 125 mcg (5,000 unit) capsule 5,000 unit PO DAILY 02/23/19 [History Last Taken Unknown] fluticasone propionate 50 mcg/actuation nasal spray,suspension 1 spray INTRANASAL DAILY 02/23/19 [History Last Taken Unknown] omega-3 fatty acids 1,000 mg capsule 1,000 mg PO DAILY 02/23/19 [History Last Taken Unknown] algea alfa plus PO 09/22/20 [History Last Taken Unknown] vilazodone 10 mg tablet 10 mg PO DAILY 09/22/20 [History Last Taken Unknown] hydrocodone-acetaminophen 1 tab PO Q4H PRN 2 Days #10 tab 05/31/21 [Rx Last Taken Unknown] Allergy/AdvReac Type Severity Reaction Status Date / Time budesonide Allergy Mild ANXIETY Verified 05/30/21 22:43 [From Rhinocort Aqua] prednisone Allergy Mild ANXIETY Verified 05/30/21 22:43 buspirone [From BuSpar] AdvReac Other Verified 05/30/21 22:43 clarithromycin [From Biaxin] AdvReac Upset Verified 05/30/21 22:43 Stomach imipramine AdvReac Other Verified 05/30/21 22:43 lorazepam [From Ativan] AdvReac Other Verified 05/30/21 22:43 oxybutynin AdvReac Diarrhea Verified 05/30/21 22:43 Penicillins AdvReac Vomiting Verified 05/30/21 22:43 prednisolone AdvReac Other Verified 05/30/21 22:43 Sulfa (Sulfonamide AdvReac Other Verified 05/30/21 22:43 Antibiotics) Family History Grandmother Colon cancer Mother Heart disease Hypertension Father Hypertension Surgical History Cyst of left breast History of cholecystectomy Social History Smoking Status: Never smoker alcohol intake: never ROS ROS ED ROS Narrative Denies recent illness. Review of Systems ROS Unobtainable: Denies due to encephalopathy Constitutional Constitutional ED: Denies chills or fever(s) ENT ENT ED: Denies ear pain or sore throat Cardiovascular Cardiovascular: Denies chest pain Respiratory/Chest Respiratory/Chest: Denies cough or dyspnea Gastrointestinal Gastrointestinal: Reports abdominal pain, nausea and vomiting; Denies constipation, diarrhea or melena Genitourinary Genitourinary ED: Reports dysuria and urinary frequency; Denies hematuria Musculoskeletal Musculoskeletal: Reports back pain; Denies arthralgias or myalgias Integumentary Denies rash Neurologic Neurologic: Denies headache(s) Psychiatric Psychiatric: Denies depression Endocrine Endocrinology: Denies polyuria Hematologic/Lymphatic Hematologic/Lymphatic: Denies easy bruising Allergic/Immunologic Allergic/Immunologic ED: Denies urticaria EXAM Physical Exam Narrative Exam Narrative: Middle-aged female vital signs stable afebrile. Appears pale and diaphoretic. Complaint left flank pain. Pain is not reproducible. Lungs are clear. Heart regular rhythm no murmur. Abdomen soft nontender normal bowel sounds no peritoneal signs. Back nontender. Moving all 4 extremities. Neurologically awake and alert. Const Vital Signs: 05/30/21 22:41 Temperature 97.8 F Temperature Source Temporal Pulse Rate 100 Respiratory Rate 18 Blood Pressure 171/73 H Blood Pressure Mean 105 Pulse Ox 98 Oxygen Delivery Method Room Air Positive well nourished and well developed; Negative for contractures or unkempt General Appearance ED: well developed and pallor; Negative for unkempt or contractures HEENT Reports moist mucous membranes normocephalic and atraumatic; Negative for trauma or tenderness Eyes PERRL and EOMs intact bilaterally Neck no lymphadenopathy, supple and no JVD General: Negative for tenderness Resp normal respiratory effort and clear to auscultation bilaterally Auscultation: Negative for rales, rhonchi or wheezes Cardio regular rate, regular rhythm, S1 normal heart sound, S2 normal heart sound and no murmurs GI non-tender, non-distended and no masses Auscultation: normoactive bowel sounds Palpation: soft; Negative for tender, guarding, rigid or rebound tenderness present Back/Spine no CVA tenderness General Back: Negative for CVA tenderness Extremity full ROM General Extremety ED: Negative for edema or tenderness General Extremity: Negative for edema Neuro CN's II-XII intact bilaterally and moves all extremities Sensorium / Orientation: alert, oriented to person, oriented to place, oriented to time and orientation impaired Motor Exam: strength 5/5 throughout Psych mental status grossly normal Appearance: Negative for unkempt Skin no wounds Skin Narrative: Diaphoretic. General Skin Exam: pallor Lesions: no lesions Rashes: no rashes MDM MDM MDM Narrative Medical decision making narrative: Middle-aged female limited past medical history. Prior stone. Awoke from sleep just before 10:00 tonight with left flank pain. Exam consider the possible kidney stone versus other etiologies. Labs, CAT scan, fluids, IV Toradol, morphine and Zofran. Patient doing much better after second dose of morphine. Doing well at 1 AM. She will be discharged home. GetBack home pack. Lab Data Attestation: I reviewed the patient's lab results. Lab results narrative: CBC unremarkable white count of 5. Hemoglobin 13. Electrolytes unremarkable gap of 10 creatinine 1. Liver enzymes normal. Lipase 125. UA showed 10-25 red cells no nitrates and no white cells. CAT scan read by the radiologist reviewed by me shows a left distal ureteral 2 mm stone consistent with the patient's history and exam. Also a low density abnormality of the liver which I discussed with the patient and she will have follow-up with her primary care physician for further evaluation. Labs: Laboratory Results - last 24 hr 05/30/21 05/30/21 05/30/21 22:51 22:51 23:28 WBC 5.8 RBC 4.55 Hgb 13.9 Hct 42.6 MCV 93.6 MCH 30.5 MCHC 32.6 RDW Std Deviation 42.5 RDW Coeff of Vincent 12.3 Plt Count 228 MPV 10.9 Immature Gran % (Auto) 0.200 Neut % (Auto) 46.9 L Lymph % (Auto) 43.3 H Mcleod % (Auto) 7.4 Eos % (Auto) 1.5 Baso % (Auto) 0.7 Absolute Neuts (auto) 2.7 Absolute Lymphs (auto) 2.53 Nucleated RBC % 0 Sodium 142 Potassium 3.7 Chloride 108 H Carbon Dioxide 24.0 Anion Gap 10 BUN 10 Creatinine 1.03 H Estim Creat Clear Calc 59.13 Est GFR (MDRD) Af Amer 72 Est GFR (MDRD) Non-Af 60 BUN/Creatinine Ratio 9.7 L Glucose 109 H Calcium 8.9 Total Bilirubin 0.30 AST 11 L ALT 20 Alkaline Phosphatase 103 Total Protein 7.0 Albumin 3.7 Globulin 3.3 Albumin/Globulin Ratio 1.1 Lipase 125 Urine Color Yellow Urine Clarity Clear Urine pH 8.0 Ur Specific [place] 1.010 Urine Protein 30 H Urine Glucose (UA) Normal Urine Ketones Negative Urine Occult Blood 50 H Urine Nitrite Negative Urine Bilirubin Negative Urine Urobilinogen Normal Ur Leukocyte Esterase 25 H Urine RBC 10-25 SEEN Urine WBC 0-5 SEEN Ur Squamous Epith Cells 0 SEEN Amorphous Sediment 1+ Urine Bacteria 1+ Urine Mucus 0 SEEN Radiography Diagnostic Testing: Radiology Impression Abdomen/Pelvis CT 05/30/21 22:55 IMPRESSION: Left distal ureteral stone with hydronephrosis. Low density mass in the right lobe of the liver. Consider ultrasound and/or contrast-enhanced MRI or CT for further evaluation. Electronically Signed: Ronak Leonard MD at 23:38 EDT , Service support , Discharge Plan Triage Chief Complaint: Abd Pain ED Provider: Shabbir Theodore Dx/Rx/DC Orders Clinical Impression: Kidney stone on left side Instructions: Understanding Kidney Stones Prescriptions: New hydrocodone-acetaminophen 5-325 mg tablet 1 tab PO Q4H PRN (Reason: pain) 2 Days Qty: 10 RF: 0 No Action cholecalciferol (vitamin D3) 5,000 unit capsule 5,000 unit PO DAILY RF: 0 omega-3 fatty acids [Fish Oil Concentrate] 1,000 mg capsule 1,000 mg PO DAILY RF: 0 fluticasone propionate 50 mcg/actuation spray,suspension 1 spray INTRANASAL DAILY RF: 0 Viibryd 10 mg tablet 10 mg PO DAILY RF: 0 algea alfa plus PO RF: 0 escitalopram oxalate 10 MG tablet 10 mg PO DAILY RF: 0 albuterol sulfate 1 PUFF inhaler 1 - 2 puff Inhalation Q4H PRN PRN (Reason: Sob &/Or Wheezing) RF: 0 Primary Care Provider: Romy Alvarado Referrals: Romy Alvarado DO [Primary Care Provider] - As soon as possible (Call follow-up your primary care physician. Your CAT scan showed an abnormal density on your liver. This will need further imaging and evaluation.) Activity Restrictions/Additional Instructions: Plenty of fluids and rest. Watch your urine for the past stone. Louin and Motrin for pain. Do not drink or drive while using the Louin. Make sure you take it with food on your stomach. If you can control your pain with just Motrin that is fine. This is a 2 mm stone and should pass without any problem. Disposition Disposition: Home, Self Care
[2021-05-30] MEDS: Ondansetron 4 MG/2 ML Vial IV (23:00)
[2021-05-30] MEDS: Ketorolac 30 MG/ML Syringe IV (23:00)
[2021-05-30] MEDS: morphine 8 MG/ML Syringe IV (23:00)
[2021-05-30] MEDS: 0.9% Normal Saline 1,000 ML 1000 ML IV (23:04)
[2021-05-30 23:12] LABS: ALB/GLOB Ratio 1.1 RATIO (0.9-2.4); AST(SGOT) 11 U/L (15-37); Alanine Aminotransfer ALT/SGPT 20 U/L (13-56); Albumin, Serum 3.7 g/dL (3.2-5.0); Alkaline Phosphatase 103 U/L (45-117); Anion Gap 10 (5-15); BUN 10 mg/dL (7-18); BUN/Creat Ratio 9.7 RATIO (10-20); Calcium,Total 8.9 mg/dL (8.5-10.1); Chloride 108 mmol/L (98-107); Creatinine, Serum 1.03 mg/dL (0.55-1.02); EST Glomerular Filtration Rate 60 mL/min (>60); Est Glom Filt Rate - Afr Amer 72 mL/min (>60); Estimated Creatinine Clearance 59.13 ml/min; Globulin 3.3 g/dL (2.2-4.2); Glucose 109 mg/dL (74-106); Lipase 125 U/L (73-393); Potassium 3.7 mmol/L (3.5-5.1); Sodium Level 142 mmol/L (136-145)
[2021-05-30 23:53] LABS: Mucous, Urine 0 SEEN /hpf (<or=2+); Squamous Epithelial Cells - UA 0 SEEN /hpf (5-10)
[2021-05-30 23:59] LABS: Color, Urine Yellow (Yellow); Glucose, Dipstick Normal (Normal); Ketone-Dipstick Negative (Negative); Leukocyte Esterase-Dipstick 25 /ul (Negative); Nitrite-Dipstick Negative (Negative); Occult Blood-Urine 50 /ul (Negative); Protein-Dipstick 30 mg/dl (Negative); Urine Bilirubin Dipstick Negative (Negative); Urine Clarity Clear (Clear); Urine Urobilinogen Normal (Normal)
[2021-05-31] MEDS: morphine 8 MG/ML Syringe IV (00:07)
[2021-05-31 00:25] LABS: Red Blood Cells-Urine 10-25 SEEN /hpf (0-5)
[2021-05-31 00:26] LABS: Amorphous Sediment 1+; Bacteria 1+ /hpf (None Seen); White Blood Cells 0-5 SEEN /hpf (0-5)
== END 2021-05-31 01:46 | disposition home or self-care (01) ==
PROVIDERS: Emergency Medicine; Emergency Provider Emergency Medicine; PCP Internal Medicine
DX: N13.2 Hydronephrosis with renal and ureteral calculous obstruction (principal); K31.84 Gastroparesis; J45.909 Unspecified asthma, uncomplicated; Z87.442 Personal history of urinary calculi; Z90.49 Acquired absence of other specified parts of digestive tract; Z79.899 Other long term (current) drug therapy
CPT/HCPCS: 74176; 80053; 81001; 83690; 85025; 96361; 96374; 96375; 99283; J7030; A4216; J2405

== ENCOUNTER → 2021-07-02 06:31 | Outpatient (CLI) | payer OTHER, SELFPAY ==
[2021-06-21 16:29] VITALS: BMI 22.8
--- NOTE | 2021-07-02 06:47 | MRI_ITS ---
STUDY: MRI ABDOMEN WITH AND WITHOUT CONTRAST REASON FOR EXAM: Female, 51 years old. LIVER MASS TECHNIQUE: Standardized fat and water weighted pulse sequences were obtained in all 3 orthogonal planes post contrast administration. IV 13CC DOTAREM was administered for the contrast portion of the examination. COMPARISON: CT 05/30/2021 FINDINGS: The visualized lung bases are unremarkable. The visualized portions of the heart are within normal limits. There is a 4.5 cm T1 hypointense, T2 hyperintense mass which demonstrates restricted diffusion within the medial aspect of the posterior segment of the right lobe of the liver which demonstrates peripheral globular enhancement which fills in over time consistent with a hemangioma. Normal gallbladder and extrahepatic biliary system. Normal spleen. Normal pancreas. Normal bilateral adrenal glands. Normal right kidney. Normal left kidney. Normal visualized stomach. Normal small intestine. Normal colon. There is non-visualization of the appendix. Normal abdominal aorta. Normal inferior vena cava. Normal retroperitoneum. Normal abdominal wall. Normal osseous structures. MRI/MRI Abd WITH and W/O Contrast IMPRESSION: MRI confirms a 4.5 cm hemangioma in the medial aspect of the posterior segment of the right lobe of the liver corresponding to the mass seen on CT. Electronically Signed: Richardson Rachel MD at 9:27 EDT Tel , Service support ,
== END ==
PROVIDERS: PCP Internal Medicine; Referring Provider Internal Medicine; Visit Provider Internal Medicine
DX: R16.0 Hepatomegaly, not elsewhere classified (principal)
CPT/HCPCS: 74183; A9575; A4216

== ENCOUNTER → 2021-09-27 12:17 | Outpatient (CLI) | payer OTHER, SELFPAY ==
[2021-06-21 16:29] VITALS: BMI 22.8
--- NOTE | 2021-09-27 12:30 | CT_ITS ---
STUDY: CARDIAC CALCIUM SCORING - CT CHEST REASON FOR EXAM: Female, 51 years old. History, Signs T Symptoms ABN STRESS LIMITED CHEST OVERREAD ONLY!! TECHNIQUE: Tomographic images were obtained of the heart and chest with a 64 detector row scanner using slice thicknesses of less than 1 mm. Volume not noted ml of Type not noted. was injected in the arm. Post-processing of the angiographic images was performed, with multiplanar reformation and 3D reconstruction. Individualized dose optimization techniques were used for this CT. TECHNICAL QUALITY: Excellent COMPARISON: None. MEDICATION: not provided HEART RATE AFTER MEDICATION: not provided bpm CORONARY ANGIOGRAPHY: Coronary CT Angiogram Descriptors of Atherosclerosis: Stenosis: None (0%) Mild (< 50%) Moderate (50-70%) Severe (70-90%) Subtotal/Total Occlusion (90-100%) Non-Evaluable Plaque Characteristics: None Non-Calcified (Soft) Calcified Mixed FINDINGS: LEFT MAIN CORONARY ARTERY: Left Main Coronary Artery CT Angiogram: Free of significant atherosclerosis. LEFT ANTERIOR DESCENDING ARTERY: Left Anterior Descending (LAD) Coronary Artery CT Angiogram: Proximal 1/3: Free of significant atherosclerosis. Middle 1/3: Free of significant atherosclerosis. Distal 1/3: Free of significant atherosclerosis. LEFT CIRCUMFLEX ARTERY: Left Circumflex (LCx) Coronary Artery CT Angiogram: Proximal 1/2: Free of significant atherosclerosis. Distal 1/2: Free of significant atherosclerosis. RIGHT CORONARY ARTERY: Right Coronary Artery (RCA) CT Angiogram: Proximal 1/3: Free of significant atherosclerosis. Middle 1/3: Free of significant atherosclerosis. Distal 1/3: Free of significant atherosclerosis. CORONARY ARTERY DOMINANCE: Right EJECTION FRACTION: Not performed. CALCIUM SCORE: Total Calcium Score: NA. Not performed. Normal heart and pericardium. Normal mediastinum. Normal hilar regions. Normal pulmonary arteries. There is atherosclerotic calcification of the aortic arch with tortuosity and elongation of the aortic arch and descending thoracic aorta. CT/Limited Chest CT w/CCTA IMPRESSION: There are no acute findings. Normal examination free of significant atherosclerosis. Electronically Signed: Lee Nice MD at 15:00 EST , Service support ,
[2021-09-27 12:47] VITALS: BP 142/78; PULSE 69; RESP 18; O2SAT 97; BMI 22.4
[2021-09-27 13:08] VITALS: BP 142/78; PULSE 81
[2021-09-27] MEDS: Nitroglycerin SL (ED/IMG/CATH) 0.4 MG TABLET SL (13:08)
[2021-09-27 13:16] VITALS: BP 134/77; PULSE 72; RESP 16; O2SAT 95
--- NOTE | 2021-09-27 17:05 | CA.SCORE ---
Calcium Scoring Date of Study:: 09/27/21 Coronary Calcium Scoring: High-resolution Computed Tomographic imaging of the chest was performed on 09/27/2021 with particular attention paid to the coronary arteries. Images from the examination were analyzed for the presence and extent of coronary artery calcification , using coronary calcium quantification software. The patient tolerated the procedure well and there were no complications. The results of the coronary calcification analysis are provided below. Findings Coronary Artery Left Main (LM): 0 Left Anterior Descending (LAD): 0 Left Circumflex (LCX): 0 Right Coronary Artery (RCA): 0 Total Agatston Score: 0 Percentile Ranking: According to prepublished reference tables 50% of patients of the same gender and/or similar age had the same and/or lower scores. Calcium Scoring Interpretation: 0 No identifiable atherosclerotic plaque. Very low cardiovascular disease risk. <5% chance of presence coronary artery disease A Negative Examination 1-10 Minimal Plaque burden. Significant coronary artery disease very unlikely. 11-100 Mild plaque burden. Likely mild or minimal coronary atherosclerosis. 101-400 Moderate plaque burden Moderate non-obstructive coronary artery disease highly likely. Over 400 Extensive plaque burden. High likelihood of at least one significant coronary stenosis (>50% diameter) Conclusion: Continue cardiovascular risk factor evaluation care as deemed appropriate. This note was generated using a voice recognition system and there may be incorrect words, spelling or punctuation that were not noted when reviewing the office note prior to saving.
--- NOTE | 2021-09-27 17:07 | CCTA.WCONT ---
CCTA w/Cont Coronary Arteries Date of Study:: 09/27/21 Abnormal Stress Test Consent:: Per Patient High-resolution CT imaging of the chest was performed on 09-27-2021 with attention to the coronary arteries. The images were also examined and analyzed for the presence and extent of coronary calcification using coronary calcium quantification software. The patient tolerated the procedure well with no obvious adverse events. The technical adequacy did demonstrate an element of misregistration artifact. This is taken into consideration with respect to the evaluation/interpretation of the coronary CTA images. LEFT MAIN CORONARY ARTERY: The left main coronary artery appears to be a large vessel giving rise to the left anterior descending and left circumflex coronary arteries. It appears to be angiographically within normal limits. LEFT ANTERIOR DESCENDING CORONARY ARTERY: The left anterior descending artery appears to be a large vessel giving rise to a diagonal branching system. It appears to be angiographically within normal limits. LEFT CIRCUMFLEX CORONARY ARTERY: The left circumflex coronary artery appears to give rise to an OM system. It appears to be angiographically within normal limits. RIGHT CORONARY ARTERY: The right coronary artery appears to be a large dominant vessel. It appears to be angiographically within normal limits. THORACIC AORTA: The thoracic aorta appears to be angiographically within normal limits. PULMONARY ARTERY: The main pulmonary artery and proximal portions of the right and left pulmonary artery appear to be patent with no obvious filling defects. LEFT ATRIUM/APPENDAGE: The left atrial appendage appears to be patent with no obvious filling defects. MITRAL VALVE: The mitral valve appears to be a bileaflet valve. AORTIC VALVE: The aortic valve appears to be a trileaflet valve. LEFT VENTRICLE: The left ventricle appears to demonstrate grossly normal left ventricular size, wall motion, and systolic function. The reported LVEF is 54%. CORONARY CALCIUM SCORE: The coronary calcium score is reported at 0. Based upon a coronary calcium score of 0 there is a very low risk of cardiovascular disease with less than 5% chance of the presence of coronary artery disease-according to prepublished reference tables. This note was generated using a voice recognition system and there may be incorrect words, spelling or punctuation that were not noted when reviewing the office note prior to saving.
== END ==
PROVIDERS: PCP Internal Medicine; Referring Provider Internal Medicine Cardiovascular Disease; Visit Provider Internal Medicine Cardiovascular Disease
DX: R94.39 Abnormal result of other cardiovascular function study (principal); E78.2 Mixed hyperlipidemia; R00.2 Palpitations; R06.00 Dyspnea, unspecified
CPT/HCPCS: 75571; 75574; 76380; Q9967; A4216

== ENCOUNTER → 2022-04-26 | Outpatient (CLI) | payer OTHER, SELFPAY ==
[2022-04-26 08:06] LABS: Absolute Lymphocyte Count 1.26 X10^3/uL (0.83-4.51); Basophil# 0.01 X10^3/uL; Basophil% 0.4 % (0-1); Differential Indicated SCAN CRITERIA MET; Eosinophil# 0.03 X10^3/uL; Eosinophils% 1.1 % (0-5); Hematocrit 44.9 % (37-47); Hemoglobin 14.6 g/dL (12.0-15.0); Lymphocyte # 1.26 X10^3/ul (0.83-4.51); Lymphocyte % 48.3 % (19-41); Mean Corp Hgb Conc 32.5 g/dL (32-36); Mean Corpuscular Hgb 30.2 pg (27.0-32.0); Mean Platelet Vol. 10.8 fl (6.2-12.0); Monocyte# 0.27 X10^3/uL; Monocyte% 10.3 % (0-10); NRBC Flagged by Analyzer 0 % (0-5); Neutrophil # 1.02 X10^3/uL (2.7-7.7); Neutrophil % 39.1 % (47-70); POSITIVE MORPHOLOGY YES; Platelet Count 232 K/mm3 (150-450); RBC Distribution Width CV 11.7 % (11.6-14.6); RBC Distribution Width SD 40.3 fl (35.1-43.9); Red Blood Count 4.83 M/mm3 (4.2-5.4); White Blood Count 2.6 K/mm3 (4.4-11.0)
[2022-04-26 08:32] LABS: ALB/GLOB Ratio 1.1 RATIO (0.9-2.4); AST(SGOT) 12 U/L (15-37); Alanine Aminotransfer ALT/SGPT 25 U/L (13-56); Albumin, Serum 3.5 g/dL (3.2-5.0); Alkaline Phosphatase 45 U/L (45-117); Anion Gap 6 (5-15); BUN 11 mg/dL (7-18); CRP < 2.90 mg/L (0.0-3.0); Calcium,Total 8.5 mg/dL (8.5-10.1); Chloride 107 mmol/L (98-107); Cholesterol 190 mg/dL (200); Creatinine, Serum 0.61 mg/dL (0.55-1.02); EST Glomerular Filtration Rate 109 mL/min (>60); Est Glom Filt Rate - Afr Amer 131 mL/min (>60); Globulin 3.3 g/dL (2.2-4.2); Glucose 90 mg/dL (74-106); High Density Lipoprotein 56 mg/dL; Potassium 3.7 mmol/L (3.5-5.1); Protein, Total 6.8 g/dL (6.4-8.2); Sodium Level 139 mmol/L (136-145); Triglycerides 138 mg/dL; Very Low Density Lipoprotein 28 mg/dL (5-40)
[2022-04-26 08:46] LABS: Differential Comment SCANNED
== END | disposition home or self-care (01) ==
LOC: LAB 06:55
PROVIDERS: PCP Internal Medicine; Referring Provider Internal Medicine; Visit Provider Internal Medicine
DX: E78.5 Hyperlipidemia, unspecified (principal); R03.0 Elevated blood-pressure reading, without diagnosis of hypertension; R79.82 Elevated C-reactive protein (CRP)
CPT/HCPCS: 36415; 80053; 80061; 85025; 86140; 86900; 86901

== ENCOUNTER → 2022-05-10 | Outpatient (CLI) | payer OTHER, SELFPAY ==
--- NOTE | 2022-05-10 07:14 | BI_ITS ---
MAMMOGRAPHY - BILATERAL SCREENING REASON FOR EXAM: Female, 52 years old. Routine annual screening examination. PERTINENT HISTORY: Unknown family history TECHNIQUE: Digital bilateral breast tasia (3D mammographic acquisition) in the CC and MLO projections. 2-D mediolateral oblique (MLO) and craniocaudad (CC) views of both breasts were obtained. CAD: Full Field Digital Mammography with Computer Added Detection was performed. COMPARISON: Mammogram from 04/27/2021, 04/25/2020, 03/05/2019, 02/20/2018. FINDINGS: Breast Composition: The breasts are extremely dense, which lowers the sensitivity of mammography. There are no dominant masses or suspicious calcifications. Stable benign-appearing bilateral calcifications. Stable biopsy marker right breast. No other significant abnormalities are identified. There has been no significant change since the prior study. BI/SCRN MAMM (CAD)W/TASIA BILAT IMPRESSION: Stable bilateral screening mammogram. Yearly follow-up mammogram recommended. (A) ASSESSMENT CATEGORY: BIRADS Category 2: Benign. A letter regarding these results will be sent to the patient by the facility within 30 days. Approximately 10% of breast cancers are not detected by mammography. A normal mammogram should not delay biopsy of a clinically suspicious abnormality. [id number] Electronically Signed: Lisandro Munoz, at 12:04 EDT ,
== END | disposition home or self-care (01) ==
LOC: OPBI 07:13
PROVIDERS: PCP Internal Medicine; Referring Provider Student in an Organized Health Care Education/Training Program; Visit Provider Student in an Organized Health Care Education/Training Program
DX: Z12.31 Encounter for screening mammogram for malignant neoplasm of breast (principal)
CPT/HCPCS: 77063; 77067

== ENCOUNTER 2022-06-12 15:56 | Outpatient (RCR) | payer OTHER, SELFPAY | END 2022-06-16 23:59 | LOC: NS 15:56 | PROVIDERS: PCP Internal Medicine; Referring Provider Internal Medicine; Visit Provider Internal Medicine | DX: Z71.3 Dietary counseling and surveillance (principal); E78.5 Hyperlipidemia, unspecified | CPT/HCPCS: 97802 ==

== ENCOUNTER 2022-07-01 15:57 | Outpatient (RCR) | payer OTHER, SELFPAY | END 2022-07-17 23:59 | LOC: NS 15:57 | PROVIDERS: PCP Internal Medicine; Referring Provider Internal Medicine; Visit Provider Internal Medicine | DX: Z71.3 Dietary counseling and surveillance (principal); E78.5 Hyperlipidemia, unspecified | CPT/HCPCS: 97803 ==

== ENCOUNTER 2022-08-05 16:00 | Outpatient (RCR) | payer OTHER, SELFPAY | END 2022-08-16 23:59 | LOC: NS 16:00 | PROVIDERS: PCP Internal Medicine; Referring Provider Internal Medicine; Visit Provider Internal Medicine | DX: Z71.3 Dietary counseling and surveillance (principal); E78.5 Hyperlipidemia, unspecified | CPT/HCPCS: 97803 ==

== ENCOUNTER 2022-08-27 12:35 | Day surgery (SDC) | payer OTHER, SELFPAY ==
[2022-08-27] MEDS: Lactated Ringers 1,000 ML 15 ML IV (13:00)
[2022-08-27 13:22] VITALS: BP 141/78; PULSE 92; RESP 16; TEMP 36.4; O2SAT 97; BMI 21.7
--- NOTE | 2022-08-27 14:31 | HP.PCM_ITS ---
HPI - General General Date of Admission: 08/27/22 Date of Service: 08/27/22 Chief Complaint: Screening colonoscopy HPI Narrative MARISOL YBARRA, is a 52 F who presents for screening colonoscopy. She has been medical history of of kidney stones, asthma, hyperlipidemia who presents for screening colonoscopy. She has not had a colonoscopy in the past. She does not have any abdominal pain. She not have any cramping. She not have any chest pain or shortness of breath. She is having normal bowel movements. She denies any blood per rectum. She does not have any weakness or dizziness. All other 16 review of systems are negative except as per body mentioned HPI. FORMERLY [facility], [facility] Medical History (Updated 08/27/22 @ 14:[address] Melgar Friend, DO) Abnormal stress test Anxiety Asthma Cardiology follow-up encounter Costochondral joint sprain Depression Gastroparesis High cholesterol History of colon polyps History of echocardiogram History of IBS History of stress test IBS (irritable bowel syndrome) Intercostal muscle strain Mass of right breast Mixed hyperlipidemia Non-smoker Osteoporosis Post-menopausal Segmental and somatic dysfunction of thoracic region Thoracic neuritis UNUSUAL FATIGUE Wears glasses Home Medications albuterol sulfate 90 mcg/actuation aerosol inhaler 1 - 2 puff inhalation Q4H PRN PRN Sob &/Or Wheezing 10/03/17 [History Last Taken Unknown] cholecalciferol (vitamin D3) 125 mcg (5,000 unit) capsule 5,000 unit PO DAILY 02/23/19 [History Last Taken Unknown] calcium citrate 250 mg calcium-vitamin D3 5 mcg (200 unit) tablet (Citracal Regular) 1 tab PO BID 06/20/21 [History Last Taken Unknown] escitalopram oxalate 20 mg tablet 20 mg PO DAILY 06/20/21 [History Last Taken Unknown] denosumab 60 mg/mL subcutaneous syringe (Prolia) 60 mg subcut [id number] 06/21/21 [History Last Taken Unknown] omega-3 fatty acids 1,000 mg capsule (Fish Oil Concentrate) 1,000 mg PO BID 06/21/21 [History Last Taken Unknown] buspirone 5 mg tablet 7.5 mg PO BID 07/23/22 [History Last Taken Unknown] Allergy/AdvReac Type Severity Reaction Status Date / Time budesonide Allergy Mild ANXIETY Verified 08/27/22 13:19 [From Rhinocort Aqua] latex AdvReac Mild sensitivity Verified 08/27/22 13:19 clarithromycin [From Biaxin] AdvReac Upset Verified 08/27/22 13:19 Stomach imipramine AdvReac Other Verified 08/27/22 13:19 lorazepam [From Ativan] AdvReac Other Verified 08/27/22 13:19 oxybutynin AdvReac Diarrhea Verified 08/27/22 13:19 Penicillins AdvReac Vomiting Verified 08/27/22 13:19 prednisolone AdvReac Other Verified 08/27/22 13:19 Sulfa (Sulfonamide AdvReac Other Verified 08/27/22 13:19 Antibiotics) adhesivives AdvReac Mild sensitivity Uncoded 08/27/22 13:19 Family History Grandmother Colon cancer Mother Heart disease Hypertension Father Hypertension Colon polyps Grandfather Cardiac pacemaker in situ Surgical History Cyst of left breast History of cholecystectomy History of colonoscopy Social History Smoking Status: Never smoker alcohol intake: never substance use type: does not use caffeine: No ROS Review of Systems ROS Unobtainable: other Constitutional Constitutional: Denies fatigue, fever(s), poor appetite, weight gain or weight loss ENT HEENT: Denies mouth lesions Cardiovascular Cardiovascular: Denies abdominal bloating, abdominal edema or abdominal pain Respiratory/Chest Respiratory/Chest: Denies change in mental status, change in phlegm color, chest congestion or chest tightness Gastrointestinal Gastrointestinal: Denies belching, bloating, change in bowel habits, change in stool character, chewing difficulty, coffee ground emesis, constipation, cramping, diarrhea, dyspepsia, dysphagia, early satiety, excessive flatus, fecal incontinence, heartburn, hematemesis, hematochezia, hemorrhoids, loose stools, melena, nausea, odynophagia, rectal bleeding, tenesmus, vomiting or weight changes Genitourinary Genitourinary: Denies abdominal discomfort, burning urination or itching Musculoskeletal Musculoskeletal: Reports as per HPI; Denies muscle weakness or myalgias Integumentary Integumentary: Denies jaundice Neurologic Neurologic: Denies lack of coordination or weakness Psychiatric Psychiatric: Denies confusion, depression, memory loss, mood swings, paranoia or suicidal ideation Endocrine Endocrinology: Denies systems reviewed and no addt'l complaints, except as documented Hematologic/Lymphatic Hematologic/Lymphatic: Denies anemia, easy bleeding, easy bruising or lymphadenopathy Allergic/Immunologic Allergic/Immunologic: Denies systems reviewed and no addt'l complaints, except as documented Vital Signs Vital Signs Vital Signs: 08/27/22 13:22 08/27/22 13:22 Temperature 97.5 F L Temperature Source Temporal Pulse Rate 92 Respiratory Rate 16 Respiratory Pattern Normal Blood Pressure 141/78 H Blood Pressure Mean 99 Blood Pressure Source Monitor Blood Pressure Position Semi-Fowlers Blood Pressure Location Left Arm Pulse Ox 97 Oxygen Delivery Method Room Air Weight Weight: 134 lb 7.712 oz Body Mass Index (BMI) 21.7 Physical Exam Const alert General Appearance: cooperative Orientation / Consciousness: oriented to person HEENT hearing grossly normal bilaterally Head and Scalp: normal to inspection Face and Sinus: face symmetric Nose: external nose normal Mouth: oral and palatal mucosa normal Eyes conjunctivae normal General Eye: normal appearance of both eyes Neck full ROM General: normal visual inspection Lymph Lymphatic: no lymphadenopathy noted Chest inspection of chest normal and palpation of chest normal Chest: symmetrical chest wall rise Resp normal respiratory effort Effort and Inspection: able to speak in complete sentences Cardio regular rate GI non-distended Percussion: normal to percussion Rectal Exam: deferred Neuro Speech: speech normal Gait (Neuro): normal gait Assessment & Plan Assessment/Plan (1) Encounter for screening colonoscopy: PLAN: She was explained alternatives, risk, benefits including not withstanding bleeding, infection, sepsis, perforation, need for emergent surgery . She will have an ASA of 1.
[2022-08-27 15:10] VITALS: BP 141/78; BP 97/52; PULSE 62; RESP 18; TEMP 36.2; O2SAT 98
--- NOTE | 2022-08-27 15:11 | OP.CCLET_ITS ---
08/27/2022 Romy Alvarado Re : Colonoscopy procedure for Diana Garcia Dear Christiano This procedure was performed on Saturday, August 27, 2022. My impressions and recommendations are as follows: Impressions : - Hemorrhoids found on perianal exam. - The entire examined colon is normal. - No specimens collected. Recommendations : - Discharge patient to home. - Resume previous diet. - Continue present medications. - Repeat colonoscopy in 5 years for surveillance. My findings are described in the full procedure note, which is enclosed. If I can be of further assistance, please feel free to contact me at . Sincerely, Ramón Riley, 08/27/2022 3:10:31 PM This report has been signed electronically.
--- NOTE | 2022-08-27 15:11 | OP.COLON_ITS ---
Patient Name: Diana Garcia Procedure Date: 08/27/2022 2:35 PM Date of : 1970 Age: 52 Procedure: Colonoscopy Indications: Screening for colorectal malignant neoplasm Providers: Ramón Riley DO Medicines: Monitored Anesthesia Care Patient Profile: This is a 52 year old female. Refer to note in patient chart for documentation of history and physical. Last Colonoscopy: 5 years ago. Complications: No immediate complications. Procedure: Pre-Anesthesia Assessment: - Prior to the procedure, a History and Physical was performed, and patient medications and allergies were reviewed. The risks and benefits of the procedure and the sedation options and risks were discussed with the patient. All questions were answered and informed consent was obtained. Patient identification and proposed procedure were verified by the physician in the pre-procedure area. Mental Status Examination: alert and oriented. Airway Examination: normal oropharyngeal airway and neck mobility. Respiratory Examination: clear to auscultation. CV Examination: normal. Prophylactic Antibiotics: The patient does not require prophylactic antibiotics. Prior Anticoagulants: The patient has taken no previous anticoagulant or antiplatelet agents. ASA Grade Assessment: II - A patient with mild systemic disease. After reviewing the risks and benefits, the patient was deemed in satisfactory condition to undergo the procedure. The anesthesia plan was to use monitored anesthesia care (MAC). Immediately prior to administration of medications, the patient was re-assessed for adequacy to receive sedatives. The heart rate, respiratory rate, oxygen saturations, blood pressure, adequacy of pulmonary ventilation, and response to care were monitored throughout the procedure. The physical status of the patient was re-assessed after the procedure. After I obtained informed consent, the scope was passed under direct vision. Throughout the procedure, the patient's blood pressure, pulse, and oxygen saturations were monitored continuously. The Colonoscope was introduced through the anus and advanced to the cecum, identified by appendiceal orifice and ileocecal valve. The colonoscopy was performed without difficulty. The patient tolerated the procedure well. The quality of the bowel preparation was good. Moderate Sedation: Moderate (conscious) sedation was personally administered by an anesthesia professional. The following parameters were monitored: oxygen saturation, heart rate, blood pressure, respiratory rate, EKG, adequacy of pulmonary ventilation, and response to care. Scope In: 2:51:14 PM Scope Withdrawal Time 0 hours 8 minutes 55 seconds Scope Out: 3:05:22 PM Total Procedure Duration Time 0 hours 14 minutes 8 seconds Findings: Hemorrhoids were found on perianal exam. The colon (entire examined portion) appeared normal. Impression: - Hemorrhoids found on perianal exam. - The entire examined colon is normal. - No specimens collected. Recommendation: - Discharge patient to home. - Resume previous diet. - Continue present medications. - Repeat colonoscopy in 5 years for surveillance. Procedure Code(s): --- Professional --- G0121, Colorectal cancer screening; colonoscopy on individual not meeting criteria for high risk CPT copyright 2017 [employer]. All rights reserved. The codes documented in this report are preliminary and upon lead performance support analyst review may be revised to meet current compliance requirements. Ramón Riley DO 08/27/2022 3:10:31 PM This report has been signed electronically. Number of Addenda: 0 Note Initiated On: 08/27/2022 2:35 PM
[2022-08-27 15:15] VITALS: BP 141/78; BP 97/52; PULSE 59; RESP 18; O2SAT 97
[2022-08-27 15:20] VITALS: BP 121/72; BP 141/78; PULSE 80; RESP 18; O2SAT 99
[2022-08-27 15:25] VITALS: BP 136/84; BP 141/78; PULSE 83; RESP 18; TEMP 36.4; O2SAT 95
[2022-08-27 15:36] VITALS: BP 141/78
== END 2022-08-27 16:22 | disposition home or self-care (01) ==
LOC: EN 12:35 → AC 12:43
PROVIDERS: PCP Internal Medicine; Referring Provider Internal Medicine; Visit Provider Internal Medicine Gastroenterology
PROC: 0DJD8ZZ Inspection of Lower Intestinal Tract, Via Natural or Artificial Opening Endoscopic (ICD-10-PCS; CPT 45378; principal; 2022-08-27 13:40)
DX: Z12.11 Encounter for screening for malignant neoplasm of colon (principal); K64.9 Unspecified hemorrhoids; E78.2 Mixed hyperlipidemia; J45.909 Unspecified asthma, uncomplicated; F41.9 Anxiety disorder, unspecified; F32.A Depression, unspecified; K58.9 Irritable bowel syndrome, unspecified; M81.0 Age-related osteoporosis without current pathological fracture; Z78.0 Asymptomatic menopausal state; Z79.899 Other long term (current) drug therapy; Z79.51 Long term (current) use of inhaled steroids; Z86.010 Personal history of colon polyps; Z80.0 Family history of malignant neoplasm of digestive organs; Z79.2 Long term (current) use of antibiotics
CPT/HCPCS: 45378; J7120; J2405

== ENCOUNTER 2022-09-09 15:58 | Outpatient (RCR) | payer OTHER, SELFPAY | END 2022-09-16 23:59 | LOC: NS 15:58 | PROVIDERS: PCP Internal Medicine; Referring Provider Internal Medicine; Visit Provider Internal Medicine | DX: Z71.3 Dietary counseling and surveillance (principal); E78.5 Hyperlipidemia, unspecified | CPT/HCPCS: 97803 ==

== ENCOUNTER 2022-10-17 06:44 | Outpatient (CLI) | payer OTHER, SELFPAY ==
[2022-10-17 07:14] LABS: Absolute Neutrophil Count 2.7 X10^3/uL (2.0-7.7); Basophil# 0.03 X10^3/uL; Basophil% 0.7 % (0-1); Eosinophil# 0.07 X10^3/uL; Eosinophils% 1.7 % (0-5); Hematocrit 44.5 % (37-47); Hemoglobin 14.1 g/dL (12.0-15.0); Lymphocyte % 24.6 % (19-41); Mean Corp Hgb Conc 31.7 g/dL (32-36); Mean Corpuscular Hgb 30.5 pg (27.0-32.0); Mean Corpuscular Volume 96.3 fL (81-99); Mean Platelet Vol. 10.7 fl (6.2-12.0); Monocyte# 0.27 X10^3/uL; Monocyte% 6.7 % (0-10); NRBC Flagged by Analyzer 0 % (0-5); Neutrophil # 2.68 X10^3/uL (2.7-7.7); Neutrophil % 66.1 % (47-70); Platelet Count 229 K/mm3 (150-450); RBC Distribution Width CV 12.1 % (11.6-14.6); Red Blood Count 4.62 M/mm3 (4.2-5.4); White Blood Count 4.1 K/mm3 (4.4-11.0)
[2022-10-17 07:41] LABS: AST(SGOT) 9 U/L (15-37); Alanine Aminotransfer ALT/SGPT 17 U/L (13-56); Albumin, Serum 3.5 g/dL (3.2-5.0); Alkaline Phosphatase 61 U/L (45-117); Anion Gap 3 (5-15); BUN 10 mg/dL (7-18); BUN/Creat Ratio 14.8 RATIO (10-20); Calcium,Total 8.8 mg/dL (8.5-10.1); Chloride 104 mmol/L (98-107); Cholesterol 216 mg/dL (200); Creatinine, Serum 0.68 mg/dL (0.55-1.02); EST Glomerular Filtration Rate 96 mL/min (>60); Est Glom Filt Rate - Afr Amer 116 mL/min (>60); Globulin 3.4 g/dL (2.2-4.2); Glucose 91 mg/dL (74-106); High Density Lipoprotein 71 mg/dL; Potassium 3.7 mmol/L (3.5-5.1); Protein, Total 6.9 g/dL (6.4-8.2); Sodium Level 140 mmol/L (136-145); Triglycerides 139 mg/dL; Very Low Density Lipoprotein 28 mg/dL (5-40)
[2022-10-17 08:29] LABS: Vitamin B12 362 pg/mL (211-911); Vitamin D,25 Hydroxy 58.9 ng/mL
== END 2022-10-17 23:59 | disposition home or self-care (01) ==
LOC: LAB 06:45
PROVIDERS: PCP Internal Medicine; Referring Provider Internal Medicine; Visit Provider Internal Medicine
DX: E55.9 Vitamin D deficiency, unspecified (principal); R74.8 Abnormal levels of other serum enzymes; M81.0 Age-related osteoporosis without current pathological fracture; E78.5 Hyperlipidemia, unspecified
CPT/HCPCS: 36415; 80053; 80061; 82306; 82607; 85025

== ENCOUNTER 2022-10-28 16:00 | Outpatient (RCR) | payer OTHER, SELFPAY | END 2022-11-16 23:59 | LOC: NS 16:00 | PROVIDERS: PCP Internal Medicine; Referring Provider Internal Medicine; Visit Provider Internal Medicine | DX: Z71.3 Dietary counseling and surveillance (principal); E78.5 Hyperlipidemia, unspecified | CPT/HCPCS: 97803 ==

== ENCOUNTER → 2023-02-04 | Outpatient (CLI) | payer OTHER, SELFPAY ==
--- NOTE | 2023-02-04 16:00 | BD_ITS ---
STUDY: DUAL ENERGY X-RAY ABSORPTIOMETRY / DXA REASON FOR EXAM: Female, 53 years old. Z780 -- postmenopausal TECHNIQUE: Bone Mineral Density (BMD) measurements of lumbar spine and bilateral hips were obtained. COMPARISON: Comparison is made with prior study dated August 24, 2020. FINDINGS: Lumbar Spine (L1-L4): g/cm2 (0.858) / T-score (-1.7) / Z-score (-0.6) Findings are suggestive of osteopenia with a moderate fracture risk. Left Femur Total: g/cm2 (0.711) / T-score (-1.9) / Z-score (-1.2) Left Femoral Neck: g/cm2 (0.513) / T-score (-3.0) / Z-score (-2.0) Right Femur Total: g/cm2 (0.795) / T-score (-1.2) / Z-score (-0.5) Right Femoral Neck: g/cm2 (0.591) / T-score (-2.3) / Z-score (-1.3) The T-Scores on the most recent prior examination were: Lumbar Spine (L1-L4): There has been improvement of bone density since the previous examination. Left Femur Total: which represents an improvement of 11.6%. Right Femur Total: which represents an improvement of 13.6%. BD/Dexa Bone Density Study IMPRESSION: The patient is considered osteoporotic as outlined below according to World [employer] Organization (WHO) criteria with a high fracture risk. There has been worsening of bone density since the previous examination. Reference Information: The T-score is the number of standard deviations above or below the standard which is normal for young adults at their peak bone mineral density. The World Health Organization (WHO) interprets the T-scores as follows: Above -1 Normal bone density Between -1 and -2.5 Osteopenia Equal to / or below -2.5 Osteoporosis As a practical clinical guideline, osteopenia may be graded as follows: Mild -1 through -1.5 Moderate -1.6 through -2.0 Severe -2.1 through -2.4 The Z-score is the number of standard deviations above or below age-matched controls. A Z-score of less than -1.5 would be considered abnormal. References: 1. NIH Osteoporosis and Related Bone Diseases www osteo.org 2. International Society for Clinical Densitometry www iscd.org 3. National Osteoporosis Foundation www nof.org Electronically Signed: Paulie Carrillo MD at 9:36 EDT ,
== END | disposition home or self-care (01) ==
LOC: OPBD 15:50
PROVIDERS: PCP Internal Medicine; Referring Provider Internal Medicine; Visit Provider Internal Medicine
DX: Z78.0 Asymptomatic menopausal state (principal)
CPT/HCPCS: 77080

== ENCOUNTER → 2023-07-22 | Outpatient (CLI) | payer OTHER, SELFPAY ==
[2023-07-22 15:24] LABS: Mucous, Urine 0 SEEN /hpf (<or=2+); Red Blood Cells-Urine 0 SEEN /hpf (0-5); Squamous Epithelial Cells - UA 0 SEEN /hpf (5-10)
[2023-07-22 17:42] LABS: Absolute Neutrophil Count 3.7 X10^3/uL (2.0-7.7); Basophil# 0.03 X10^3/uL; Basophil% 0.5 % (0-1); Eosinophil# 0.09 X10^3/uL; Eosinophils% 1.6 % (0-5); Hemoglobin 13.2 g/dL (12.0-15.0); Lymphocyte % 26.8 % (19-41); Mean Corp Hgb Conc 32.2 g/dL (32-36); Mean Corpuscular Hgb 31.1 pg (27.0-32.0); Mean Corpuscular Volume 96.7 fL (81-99); Mean Platelet Vol. 11.4 fl (6.2-12.0); Monocyte# 0.31 X10^3/uL; Monocyte% 5.5 % (0-10); NRBC Flagged by Analyzer 0 % (0-5); Neutrophil # 3.66 X10^3/uL (2.7-7.7); Neutrophil % 65.4 % (47-70); Platelet Count 231 K/mm3 (150-450); RBC Distribution Width CV 12.2 % (11.6-14.6); RBC Distribution Width SD 43.1 fl (35.1-43.9); Red Blood Count 4.24 M/mm3 (4.2-5.4); White Blood Count 5.6 K/mm3 (4.4-11.0)
[2023-07-22 17:45] LABS: Color, Urine Yellow (Yellow); Glucose, Dipstick Normal (Normal); Ketone-Dipstick Negative (Negative); Leukocyte Esterase-Dipstick 100 /ul (Negative); Nitrite-Dipstick Negative (Negative); Occult Blood-Urine 10 /ul (Negative); Protein-Dipstick 15 mg/dl (Negative); Urine Bilirubin Dipstick Negative (Negative); Urine Clarity Sl. Cloudy (Clear); Urine Urobilinogen Normal (Normal)
[2023-07-22 17:51] LABS: Erythrocyte Sedimentation Rate 6 mm/hr (0-30)
[2023-07-22 17:53] LABS: Vitamin B12 845 pg/mL (211-911); Vitamin D,25 Hydroxy 51.7 ng/mL
[2023-07-22 17:58] LABS: White Blood Cells 0-5 SEEN /hpf (0-5)
[2023-07-22 17:59] LABS: Amorphous Sediment 1+; Bacteria 1+ /hpf (None Seen); Calcium Oxalate Crystals Ur 1+ /hpf (<or=2+)
[2023-07-22 18:29] LABS: AST(SGOT) 17 U/L (15-37); Alanine Aminotransfer ALT/SGPT 27 U/L (13-56); Albumin, Serum 3.5 g/dL (3.2-5.0); Alkaline Phosphatase 72 U/L (45-117); Anion Gap 6 (5-15); BUN 15 mg/dL (7-18); BUN/Creat Ratio 19.2 RATIO (10-20); CRP < 2.90 mg/L (0.0-3.0); Calcium,Total 8.8 mg/dL (8.5-10.1); Chloride 109 mmol/L (98-107); Creatinine, Serum 0.78 mg/dL (0.55-1.02); EST Glomerular Filtration Rate 81 mL/min (>60); Est Glom Filt Rate - Afr Amer 98 mL/min (>60); Globulin 3.4 g/dL (2.2-4.2); Glucose 86 mg/dL (74-106); Potassium 3.8 mmol/L (3.5-5.1); Protein, Total 6.9 g/dL (6.4-8.2); Rheumatoid Factor < 10.0 IU/mL (<15); Sodium Level 143 mmol/L (136-145); Thyroid Stim Hormone (TSH) 2.22 uIU/mL (0.358-3.74)
[2023-07-24 13:07] LABS: ANTINUCLEAR ANTIBODIES DIRECT Negative (Negative)
== END | disposition home or self-care (01) ==
LOC: MTLAB 15:17
PROVIDERS: PCP Internal Medicine; Referring Provider Internal Medicine; Visit Provider Internal Medicine
DX: M25.50 Pain in unspecified joint (principal); R53.83 Other fatigue; E55.9 Vitamin D deficiency, unspecified; E53.8 Deficiency of other specified B group vitamins
CPT/HCPCS: 36415; 80053; 81001; 82306; 82607; 82746; 84443; 85025; 85652; 86038; 86140; 86431

== ENCOUNTER → 2023-08-19 | Outpatient (CLI) | payer OTHER, SELFPAY ==
[2023-08-19 10:24] LABS: Color, Urine Yellow (Yellow); Glucose, Dipstick Normal (Normal); Ketone-Dipstick Negative (Negative); Leukocyte Esterase-Dipstick 25 /ul (Negative); Nitrite-Dipstick Negative (Negative); Occult Blood-Urine Negative /ul (Negative); Protein-Dipstick Negative (Negative); Urine Bilirubin Dipstick Negative (Negative); Urine Clarity Clear (Clear); Urine Urobilinogen Normal (Normal); Urine pH 6.5 (5.0 - 8.0)
== END | disposition home or self-care (01) ==
LOC: LAB 09:41
PROVIDERS: PCP Internal Medicine; Referring Provider Internal Medicine; Visit Provider Internal Medicine
DX: R31.29 Other microscopic hematuria (principal)
CPT/HCPCS: 81002; 87086

== ENCOUNTER → 2023-08-25 | Outpatient (CLI) | payer OTHER, SELFPAY ==
--- NOTE | 2023-08-25 08:51 | BI_ITS ---
MAMMOGRAPHY - BILATERAL DIAGNOSTIC REASON FOR EXAM: Female, 53 years old. L BREAST PAIN PERTINENT HISTORY: Non-contributory. TECHNIQUE: Digital examination. Mediolateral oblique (MLO) and craniocaudad (CC) views of both breasts were obtained. CAD: CAD was performed on this study. COMPARISON: 05/10/2022 FINDINGS: Breast Composition: The breasts are heterogeneously dense, which may obscure small masses. There are no dominant masses or suspicious calcifications. No other significant abnormalities are identified. BI/DIAG MAMM W/CAD, BILAT IMPRESSION: Stable bilateral diagnostic mammogram. Ultrasound of the area of pain will be obtained. ASSESSMENT CATEGORY: BIRADS Category 0: Incomplete. Need additional imaging evaluation. A letter regarding these results will be sent to the patient by the facility within 30 days. FOLLOW UP RECOMMENDATION: Ultrasound Recommended. (I) Approximately 10% of breast cancers are not detected by mammography. A normal mammogram should not delay biopsy of a clinically suspicious abnormality. Electronically Signed: Richardson Rachel MD at 10:06 EDT ,
--- NOTE | 2023-08-25 08:52 | US_ITS ---
STUDY: ULTRASOUND BREAST - LEFT REASON FOR EXAM: Female, 53 years old. Left breast pain TECHNIQUE: Axial and longitudinal images of the LEFT breast were performed with a high resolution ultrasound transducer. # OF IMAGES: 39 COMPARISON: Diagnostic mammogram earlier today FINDINGS: LEFT Breast: Heterogeneous background echotexture. At 1:00, 1 cm from nipple, ultrasound confirms a 5 mm round parallel circumscribed anechoic mass with posterior enhancement within some dense breast parenchyma consistent with a cyst from fibrocystic change. At 12:00, 3 cm from nipple, ultrasound confirms a 6 mm round parallel circumscribed hypoechoic mass with posterior enhancement consistent with a cyst. At 12:00, 4 cm nipple, ultrasound confirms a 4 mm round parallel circumscribed hypoechoic mass with posterior enhancement consistent with a cyst.: US/Breast Limited Unilateral IMPRESSION: Ultrasound confirms fibrocystic change. ASSESSMENT CATEGORY: BIRADS Category 2: Benign. A letter regarding these results will be sent to the patient by the facility within 30 days. Electronically Signed: Richardson Rachel MD at 23:15 EDT ,
== END | disposition home or self-care (01) ==
LOC: OPBI 08:49
PROVIDERS: PCP Internal Medicine; Referring Provider Internal Medicine; Visit Provider Internal Medicine
DX: N64.4 Mastodynia (principal)
CPT/HCPCS: 76642; 77062; 77066; G0279

== ENCOUNTER → 2023-09-16 | Outpatient (CLI) | payer OTHER, SELFPAY ==
[2023-09-21 09:07] LABS: HPV APTIMA, High Risk Negative (Negative)
== END | disposition home or self-care (01) ==
PROVIDERS: Visit Provider Obstetrics & Gynecology
DX: Z12.4 Encounter for screening for malignant neoplasm of cervix (principal)
CPT/HCPCS: 87624; 88175; G0145

== ENCOUNTER → 2023-10-24 | Outpatient (CLI) | payer OTHER, SELFPAY ==
--- NOTE | 2023-10-24 13:32 | MRI_ITS ---
STUDY: BILATERAL BREAST MR WITHOUT AND WITH CONTRAST REASON FOR EXAM: Female, 53 years old. History of right breast biopsy in 2016. Dense breasts with fibrocystic changes. TECHNIQUE: Multi-sequence multi-echo imaging of both breasts was performed with a dedicated breast coil. T1-weighted and T2-weighted images were performed before the administration of contrast. T1-weighted images were also performed after the intravenous administration of 13 mL of Clariscan contrast. COMPARISON: Bilateral mammogram dated August 25, 2023 and left breast ultrasound dated August 25, 2023. FINDINGS: Heterogeneously dense fibroglandular tissue with minimal background enhancement, left slightly greater than right. No abnormal enhancing masses or areas of non-mass enhancement. No enlarged or abnormal lymph nodes. No abnormality in the visualized regions of the chest or liver. MRI/Breast Bilateral W/O and W IMPRESSION: No abnormality on the breast MRI with contrast. Yearly screening mammogram, which may be alternated with breast MRI with contrast, would be appropriate. CATEGORY: BIRADS Category 2: Benign. A letter regarding these results will be sent to the patient by the facility within 30 days. Electronically Signed: Tien Garcia MD at 16:07 EST ,
== END | disposition home or self-care (01) ==
LOC: MRI 13:12
PROVIDERS: PCP Internal Medicine; Referring Provider Obstetrics & Gynecology; Visit Provider Obstetrics & Gynecology
DX: N60.19 Diffuse cystic mastopathy of unspecified breast (principal)
CPT/HCPCS: 77049; A9575; A4216; C8908

== ENCOUNTER 2024-02-14 10:07 | Emergency (ER) | payer OTHER, SELFPAY ==
[2024-02-14] VITALS (7 sets, daily range): BP systolic 129–195; BP diastolic 73–83; PULSE 71–100; RESP 16–19; TEMP 35.8–36.4; O2SAT 95–100; BMI 25.4
--- NOTE | 2024-02-14 10:39 | EKG12_ITS ---
Test Reason : L ARM PAIN Blood Pressure : / mmHG Vent. Rate : 098 BPM Atrial Rate : 098 BPM P-R Int : 194 ms QRS Dur : 090 ms QT Int : 378 ms P-R-T Axes : 069 -03 044 degrees QTc Int : 482 ms Normal sinus rhythm Nonspecific ST changes Abnormal ECG Confirmed by Danny Warner ([id number]), editor trade journal REBA LAYNE ([id number]) on 02/16/2024 11:08:38 AM Referred By: Confirmed By:Danny Warner
--- NOTE | 2024-02-14 10:39 | CT_ITS ---
STUDY: CT BRAIN WITHOUT CONTRAST REASON FOR EXAM: Female, 54 years old. LUE numbness RADIATION DOSAGE (If Supplied By Facility): CTDIvol = ( 44.99 ) mGy, DLP = ( 796.11 ) mGycm TECHNIQUE: Transaxial CT imaging of the brain was performed without administration of intravenous contrast material. Individualized dose optimization techniques were used for this CT. COMPARISON: Head CT dated August 21, 2016 FINDINGS: Normal soft tissue structures. Normal calvarium. No visualized asymmetric dense artery sign or sulcal effacement. Normal size ventricles and extra-axial spaces for the patient''s age. Normal white matter tracts of the cerebral hemispheres. Normal basal ganglia and thalami. Normal brainstem. Normal cerebellum. There is no intracranial hemorrhage. There are no findings of an acute ischemic infarction. Normal visualized paranasal sinuses. CT/Brain/Head without Contrast IMPRESSION: Normal unenhanced CT scan of the brain. Electronically Signed: Andrea Sepulveda MD at 12:16 EDT ,
--- NOTE | 2024-02-14 10:40 | EDS_ITS ---
HPI History of Present Illness Chief Complaint: Other, Pain/Inj Informant: patient Narrative Narrative: Patient has had several weeks of intermittent left upper extremity discomfort/tingling, it has been lasting an hour or 2 at a time mostly seems to occur randomly, it is not exertional, it does not come on with specific position changes or movement of her left upper extremity, and she denies any chest discomfort, dyspnea, palpitations, near-syncope or syncope, but she is concerned that these could be atypical cardiac symptoms and wants to have it checked out. Today the discomfort is more persistent than it had been last couple weeks. She checked her blood pressure and it was high which made her feel more anxious, she takes medications for anxiety. She denies having any headaches. She has never experienced any weakness in the arm or dropping things. 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 She denies any pain in her neck. [facility] Medical History Abnormal stress test Anxiety Asthma Cardiology follow-up encounter Costochondral joint sprain Dense breast tissue Depression TARAH (generalized anxiety disorder) Gastroparesis High cholesterol History of colon polyps History of echocardiogram History of IBS History of stress test Impacted cerumen, right ear Intercostal muscle strain Mass of right breast Mixed hyperlipidemia Non-smoker OCD (obsessive compulsive disorder) Osteoporosis Post-menopausal Segmental and somatic dysfunction of thoracic region Thoracic neuritis UNUSUAL FATIGUE Wears glasses Home Medications albuterol sulfate 90 mcg/actuation aerosol inhaler 1 - 2 puff inhalation Q4H PRN PRN Sob &/Or Wheezing 10/03/17 [History Last Taken Unknown] cholecalciferol (vitamin D3) 125 mcg (5,000 unit) capsule 5,000 unit PO DAILY 0 02/23/19 [History Last Taken Unknown] calcium citrate 250 mg calcium-vitamin D3 5 mcg (200 unit) tablet (Citracal Regular) 1 tab PO BID 06/20/21 [History Last Taken Unknown] denosumab 60 mg/mL subcutaneous syringe (Prolia) 60 mg subcut [id number] 06/21/21 [History Last Taken Unknown] omega-3 fatty acids 1,000 mg capsule (Fish Oil Concentrate) 1,000 mg PO BID 06/21/21 [History Last Taken Unknown] cyanocobalamin (vitamin B-12) 500 mcg tablet 500 mcg PO DAILY 11/06/22 [History Last Taken Unknown] clonazepam 0.5 mg tablet 0.5 mg PO DAILY #30 tabs 12/02/22 [Rx Last Taken Unknown] linaclotide 72 mcg capsule (Linzess) 72 mcg PO DAILY #30 caps 05/16/23 [Rx Last Taken Unknown] buspirone 10 mg tablet See Rx Instructions .Route .COMPLEX #180 tabs 07/29/23 [Rx Last Taken Unknown] escitalopram oxalate 20 mg tablet See Rx Instructions .Route .COMPLEX #90 tabs 07/29/23 [Rx Last Taken Unknown] Allergy/AdvReac Type Severity Reaction Status Date / Time budesonide Allergy Mild ANXIETY Verified 02/14/24 10:09 [From Rhinocort Aqua] latex AdvReac Mild sensitivity Verified 02/14/24 10:09 adhesive AdvReac skin Verified 02/14/24 10:09 irritation clarithromycin [From Biaxin] AdvReac Upset Verified 02/14/24 10:09 Stomach imipramine AdvReac Other Verified 02/14/24 10:09 lorazepam [From Ativan] AdvReac Other Verified 02/14/24 10:09 oxybutynin AdvReac Diarrhea Verified 02/14/24 10:09 Penicillins AdvReac Vomiting Verified 02/14/24 10:09 prednisolone AdvReac Other Verified 02/14/24 10:09 Sulfa (Sulfonamide AdvReac Other Verified 02/14/24 10:09 Antibiotics) Family History Grandmother Colon cancer Mother Heart disease Hypertension Father Hypertension Colon polyps Grandfather Cardiac pacemaker in situ Surgical History Cyst of left breast History of cholecystectomy History of colonoscopy Social History Smoking Status: Never smoker alcohol intake: never substance use type: does not use caffeine: No what type of physical activity do you participate in: none seatbelt use: always do you feel safe at home: Yes additional social history: Single ROS ROS ED Constitutional Constitutional ED: Denies chills or fever(s) Eyes Eyes: Denies change in vision or diplopia ENT ENT ED: Denies rhinorrhea or sore throat Cardiovascular Cardiovascular: Denies chest pain or palpitations Respiratory/Chest Respiratory/Chest: Denies cough or dyspnea Gastrointestinal Gastrointestinal: Denies abdominal pain, diarrhea, nausea or vomiting Genitourinary Genitourinary ED: Denies dysuria or hematuria Musculoskeletal Musculoskeletal: Reports as per HPI and extremity pain; Denies back pain or neck pain Integumentary Denies abscess or rash Neurologic Neurologic: Reports paresthesias LUE; Denies headache(s) or weakness Psychiatric Psychiatric: Denies suicidal ideation or suicidal thoughts EXAM Physical Exam Const Vital Signs: 02/14/24 10:07 02/14/24 10:37 02/14/24 11:09 Temperature 96.5 F L Temperature Source Temporal Pulse Rate 100 Respiratory Rate 16 Respiratory Pattern Normal Blood Pressure 195/83 H Blood Pressure Mean 120 Pulse Ox 100 Oxygen Delivery Method Room Air Room Air 02/14/24 11:07 02/14/24 11:23 02/14/24 11:30 Temperature Temperature Source Pulse Rate 86 90 94 Respiratory Rate 16 19 H 16 Respiratory Pattern Blood Pressure Blood Pressure Mean Pulse Ox 98 96 95 Oxygen Delivery Method 02/14/24 11:45 02/14/24 12:00 Temperature Temperature Source Pulse Rate 100 87 Respiratory Rate 16 16 Respiratory Pattern Blood Pressure 135/81 H Blood Pressure Mean 99 Pulse Ox 97 99 Oxygen Delivery Method Positive well nourished and well developed General Appearance ED: well developed and NAD HEENT Reports moist mucous membranes normocephalic and atraumatic Eyes PERRL and EOMs intact bilaterally Neck full ROM and supple Resp normal respiratory effort and clear to auscultation bilaterally Cardio regular rate, regular rhythm, S1 normal heart sound, S2 normal heart sound and no murmurs GI non-tender and non-distended Auscultation: normoactive bowel sounds Palpation: soft Back/Spine no CVA tenderness General Back: other FROM Extremity normal to inspection General Extremety ED: Negative for edema, pulses abnormal or tenderness General Extremity: Negative for edema or pulses abnormal Neuro oriented x3 and CN's II-XII intact bilaterally Neuro Narrative: Subjective paresthesias left hand and forearm but no sensory loss. Normal [id number] and [id number] bilaterally. Normal speech. No aphasia. No Dave inattention or hemineglect. Normal visual field exam. Total NIHSS 1 for the sensory. Sensorium / Orientation: awake and alert Motor Exam: strength 5/5 throughout Psych mental status grossly normal Skin no rashes or lesions noted and no wounds MDM MDM MDM Narrative Medical decision making narrative: Stuttering angina in the differential diagnosis which is why the patient is here, so cardiac workup obtained, but I also obtained a CT of the head given that her blood pressure is very high considering possibility of TIA/stroke, although I think this is less likely since the patient has had no weakness or any other neurologic symptoms or progression in weeks although the symptoms have recurred frequently. Also given aspirin 325 while obtaining workup. The workup was negative including CT of the head, I reviewed the images and the report which I agree with. Her blood pressure came down without treatment, 135/81. She suspected it was high because of anxiety which may be the case. I recommend following up for recheck, unknown if this was related to her symptoms or not. Esophageal disorders are also in the differential diagnosis. But at this time I think she is stable to go home and she is comfortable with that plan. Lab Data Attestation: I reviewed the patient's lab results. Labs: Laboratory Results - last 24 hr 02/14/24 10:50 WBC 6.7 RBC 4.64 Hgb 14.3 Hct 43.9 MCV 94.6 MCH 30.8 MCHC 32.6 RDW Std Deviation 43.2 RDW Coeff of Vincent 12.5 Plt Count 239 MPV 10.3 Immature Gran % (Auto) 0.400 Neut % (Auto) 83.6 H Lymph % (Auto) 11.6 L Dare % (Auto) 3.7 Eos % (Auto) 0.4 Baso % (Auto) 0.3 Absolute Neuts (auto) 5.6 Absolute Lymphs (auto) 0.78 L Nucleated RBC % 0 Sodium 140 Potassium 3.8 Chloride 107 Carbon Dioxide 27.0 Anion Gap 6 BUN 7 Creatinine 0.72 Estim Creat Clear Calc 88.46 Est GFR (MDRD) Af Amer 108 Est GFR (MDRD) Non-Af 90 BUN/Creatinine Ratio 9.8 L Glucose 98 Calcium 8.8 Troponin I High Sens 5 Radiography Diagnostic Testing: Clinical Impression(s) from Imaging Studies Brain CT 02/14/24 10:39 IMPRESSION: Normal unenhanced CT scan of the brain. Electronically Signed: Andrea Sepulveda MD at 12:16 EDT Reading Location ID and State: [address] [place] [address] , Service support , Chest X-Ray 02/14/24 11:15 IMPRESSION: Normal x-ray examination of the chest. Electronically Signed: Andrea Sepulveda MD at 12:09 EDT Reading Location ID and State: [address] [place] [address] , Service support , Rhythm Strip Rhythm Strip: Sinus Rhythm Rate: 98 Ectopy: None EKG Initial EKG: Attestation: I personally reviewed and interpreted this EKG as follows: Interpretation: Sinus Rhythm, No Acute Injury Pattern and Non-Specific ST Changes (Very mild ST scooping V5-V6) Prior EKG tracings: available for review (06/21/2021) Prior: Unchanged Discharge Plan Triage Chief Complaint: Other, Pain/Inj ED Provider: Ronak Jackson Dx/Rx/DC Orders Clinical Impression: Numbness and tingling in left arm Instructions: ED Paraesthesias Prescriptions: No Action cholecalciferol (vitamin D3) 5,000 unit capsule 5,000 unit PO DAILY omega-3 fatty acids [Fish Oil Concentrate] 1,000 mg capsule 1,000 mg PO BID Prolia 60 mg/mL syringe 60 mg subcut [id number] calcium citrate-vitamin D3 [Citracal Regular] 250 mg-5 mcg (200 unit) tablet 1 tab PO BID cyanocobalamin (vitamin B-12) 500 mcg tablet 500 mcg PO DAILY clonazepam 0.5 mg tablet 0.5 mg PO DAILY Qty: 30 1RF buspirone 10 mg tablet See Rx Instructions .ROUTE .COMPLEX Qty: 180 1RF Dose Instruction: TAKE 1 TABLET BY MOUTH TWO TIMES A DAY Rx Instructions: TAKE 1 TABLET BY MOUTH TWO TIMES A DAY escitalopram oxalate 20 mg tablet See Rx Instructions .ROUTE .COMPLEX Qty: 90 1RF Dose Instruction: TAKE 1 TABLET BY MOUTH EVERY DAY Rx Instructions: TAKE 1 TABLET BY MOUTH EVERY DAY albuterol sulfate 1 PUFF inhaler 1 - 2 puff Inhalation Q4H PRN PRN (Reason: Sob &/Or Wheezing) Catherine 72 mcg capsule 72 mcg PO DAILY Qty: 30 5RF Primary Care Provider: Romy Alvarado Referrals: Romy Alvarado, [Primary Care Provider] - (Call for follow-up appointment) Disposition Disposition: Home, Self Care
[2024-02-14 10:57] LABS: Absolute Lymphocyte Count 0.78 X10^3/uL (0.83-4.51); Absolute Neutrophil Count 5.6 X10^3/uL (2.0-7.7); Basophil# 0.02 X10^3/uL; Basophil% 0.3 % (0-1); Eosinophil# 0.03 X10^3/uL; Eosinophils% 0.4 % (0-5); Hematocrit 43.9 % (37-47); Hemoglobin 14.3 g/dL (12.0-15.0); Lymphocyte # 0.78 X10^3/ul (0.83-4.51); Lymphocyte % 11.6 % (19-41); Mean Corp Hgb Conc 32.6 g/dL (32-36); Mean Corpuscular Hgb 30.8 pg (27.0-32.0); Mean Corpuscular Volume 94.6 fL (81-99); Mean Platelet Vol. 10.3 fl (6.2-12.0); Monocyte# 0.25 X10^3/uL; Monocyte% 3.7 % (0-10); NRBC Flagged by Analyzer 0 % (0-5); Neutrophil % 83.6 % (47-70); Platelet Count 239 K/mm3 (150-450); RBC Distribution Width CV 12.5 % (11.6-14.6); RBC Distribution Width SD 43.2 fl (35.1-43.9); Red Blood Count 4.64 M/mm3 (4.2-5.4); White Blood Count 6.7 K/mm3 (4.4-11.0)
[2024-02-14] MEDS: Aspirin 81 MG TAB.CHEW 324 MG PO (11:08)
[2024-02-14 11:14] LABS: Anion Gap 6 (5-15); BUN 7 mg/dL (7-18); BUN/Creat Ratio 9.8 RATIO (10-20); Calcium,Total 8.8 mg/dL (8.5-10.1); Chloride 107 mmol/L (98-107); Creatinine, Serum 0.72 mg/dL (0.55-1.02); EST Glomerular Filtration Rate 90 mL/min (>60); Est Glom Filt Rate - Afr Amer 108 mL/min (>60); Estimated Creatinine Clearance 88.46 ml/min; Glucose 98 mg/dL (74-106); Potassium 3.8 mmol/L (3.5-5.1); Sodium Level 140 mmol/L (136-145); Troponin-I HS 5 pg/mL (3.0-54.0)
--- NOTE | 2024-02-14 11:15 | RAD_ITS ---
STUDY: X-RAY CHEST REASON FOR EXAM: Female, 54 years old. chest pain TECHNIQUE: Single AP portable view of the chest. COMPARISON: April 06, 2021 FINDINGS: The lungs are clear and expanded. There is no demonstrated pleural abnormality. Normal size heart. Normal mediastinum and yoanna. Normal visualized pulmonary arteries. Normal visualized aortic arch and descending thoracic aorta. Normal visualized thoracic spine. Normal visualized ribs, clavicles, and shoulders. There is no demonstrated abnormality of the visualized soft tissue structures of the upper abdomen. RAD/Chest 1 View (Portable) IMPRESSION: Normal x-ray examination of the chest. Electronically Signed: Andrea Sepulveda MD at 12:09 EDT ,
== END 2024-02-14 13:43 | disposition home or self-care (01) ==
PROVIDERS: Emergency Provider Emergency Medicine; PCP Internal Medicine; Visit Provider Emergency Medicine
DX: R20.2 Paresthesia of skin (principal); R20.0 Anesthesia of skin; E78.2 Mixed hyperlipidemia; Z79.899 Other long term (current) drug therapy; F32.A Depression, unspecified; F41.9 Anxiety disorder, unspecified; Z90.49 Acquired absence of other specified parts of digestive tract
CPT/HCPCS: 70450; 71045; 80048; 84484; 85025; 93005; 99284; A4216

== ENCOUNTER → 2024-04-13 | Outpatient (CLI) | payer OTHER, SELFPAY | END | disposition home or self-care (01) | LOC: PSN 06:49 | PROVIDERS: PCP Nurse Practitioner Family; Referring Provider Nurse Practitioner Gerontology; Visit Provider Nurse Practitioner Gerontology | DX: R00.2 Palpitations (principal) | CPT/HCPCS: 93225; 93226 ==

== ENCOUNTER → 2024-04-20 | Outpatient (CLI) | payer OTHER, SELFPAY ==
--- NOTE | 2024-04-20 13:47 | STE_ITS ---
Reason For Study: Dyspnea Stress Results Maximum Predicted HR: 164 bpm Target HR: 139 bpm % Maximum Predicted HR: 103 % Heart Stage Duration Rate BP Comment (mm:ss) (bpm) Baseline 82 156/84Patient denies chest pain Stage 1 3:00 130 174/68Patient denies chest pain or shortness of beath Patient denies chest pain. Mild shortness of breath noted at the end Stage 2 3:00 160 182/72of the stage. Stage 3 1:31 169 190/72Shortness of breath. Patient denies chest pain. Recovery 97 158/70Patient denies chest pain or shortness of breath Stress Duration: 7:31 mm:ss Maximum Stress HR: 169 bpm Baseline Echocardiogram Findings Stress Echo Wall motion Data Resting WM Intermediate WM Stress WM Time Measurements MV dec time: 0.19 sec Doppler Measurements & Calculations MV E max liana: 70.2 cm/sec MV dec slope: 362.5 cm/sec2 MV A max liana: 99.1 cm/sec MV E/A: 0.71 ECHO/Stress Test Echo w/o Contrast Interpretation Summary Exercise stress echo 54-year-old lady with a history of dyspnea. Resting EKG demonstrates normal sinus rhythm with a rate of 82 bpm normal inter vals are noted resting blood pressure is 156/84 mmHg. The patient exercised according to regul ar Hector protocol for a total duration of 7 minutes and 31 seconds. The maximum heart rate attained w as 171 bpm which was 104% of max impacted heart rate the maximum workload was noted to be 10.1 metab olic equivalents. At rest there were no ST or T wave changes noted suggest ischemia at peak exercise there was approximately 2 mm of horizontal to upsloping ST changes noted which was sugges tive of ischemia. During recovery there was a variation in ST changes and approximately 5 minutes into recovery there were downsloping ST changes noted in leads II, III and aVF. The above changes a re suggestive but not diagnostic of ischemia. The peak blood pressure was 190/72 mmHg which is a good blood pressure response to exercise. Stress echocardiogram. The resting echocardiogram demonstrated preserved left v entricular systolic function estimated at 55%. At peak exercise there was thickening of all ulloa, reduction of left ventricular cavity size. The inferior lateral wall may have been mildly lagging and inferior lateral ischemia cannot be completely excluded. Conclusion: Stress echocardiogram with EKG changes suggestive but not diagnostic of ischemi a and the stress echocardiographic images suggestive of inferolateral ischemia mild. Ordering Physician: Romy Alvarado Referring Physician: Romy Alvarado Performed By:
== END | disposition home or self-care (01) ==
PROVIDERS: PCP Nurse Practitioner Family; Referring Provider Internal Medicine; Visit Provider Internal Medicine
DX: R06.09 Other forms of dyspnea (principal)
CPT/HCPCS: 93017; 93350

== ENCOUNTER 2024-04-26 07:12 | Day surgery (SDC) | payer OTHER, SELFPAY ==
[2024-04-21 12:30] LABS: Absolute Lymphocyte Count 1.19 X10^3/uL (0.83-4.51); Absolute Neutrophil Count 3.3 X10^3/uL (2.0-7.7); Basophil# 0.04 X10^3/uL; Basophil% 0.8 % (0-1); Eosinophil# 0.03 X10^3/uL; Eosinophils% 0.6 % (0-5); Hematocrit 44.8 % (37-47); Hemoglobin 14.3 g/dL (12.0-15.0); Lymphocyte # 1.19 X10^3/ul (0.83-4.51); Lymphocyte % 24.5 % (19-41); Mean Corp Hgb Conc 31.9 g/dL (32-36); Mean Corpuscular Hgb 30.3 pg (27.0-32.0); Mean Corpuscular Volume 94.9 fL (81-99); Mean Platelet Vol. 11.3 fl (6.2-12.0); Monocyte# 0.29 X10^3/uL; NRBC Flagged by Analyzer 0 % (0-5); Neutrophil # 3.29 X10^3/uL (2.7-7.7); Neutrophil % 67.9 % (47-70); Platelet Count 242 K/mm3 (150-450); RBC Distribution Width CV 12.1 % (11.6-14.6); RBC Distribution Width SD 42.5 fl (35.1-43.9); Red Blood Count 4.72 M/mm3 (4.2-5.4); White Blood Count 4.9 K/mm3 (4.4-11.0)
[2024-04-21 12:46] LABS: Internal QC Validated? YES +Cl - CLEAR BKGD; Pregnancy, Serum, hCG Quali. NEGATIVE Negative
[2024-04-21 13:35] LABS: Anion Gap 8 (5-15); BUN 11 mg/dL (7-18); BUN/Creat Ratio 16.5 RATIO (10-20); Chloride 104 mmol/L (98-107); Creatinine, Serum 0.67 mg/dL (0.55-1.02); EST Glomerular Filtration Rate 97 mL/min (>60); Est Glom Filt Rate - Afr Amer 117 mL/min (>60); Glucose 96 mg/dL (74-106); Sodium Level 138 mmol/L (136-145)
[2024-04-23 09:05] VITALS: BMI 25.4
--- NOTE | 2024-04-26 09:21 | CL.D_ITS ---
Patient Name: MARISOL YBARRA Study Date: 04/26/2024 Performing: Michelet Rodríguez MD Ht: 66.14 inches 168 cm : 1970 Wt: 158.01 lbs 71.67 kg Age: 54 Gender: female BSA: 1.81 PROCEDURE(S) PERFORMED [id number])LHC/COR/LV CLINICAL PROFILE AND INDICATIONS Indications: Suspected CAD Heart Failure: None Stress/Imaging Stress Echocardiogram: Yes Result: Positive Low RiskStress Echocardiogram: Positive Low Risk CAD Presentations: Symptom unlikely to be ischemic. CONCLUSIONS Normal coronary arteries Normal LV size, wall motion,and systolic function RECOMMENDATIONS Medical therapy DESCRIPTION OF PROCEDURE The patient arrived to the procedure lab. The risks and benefits of the procedure as well as a full description of our services here and current unavailability of surgical backup were fully explained to the patient and/or their significant other prior to the catheterization. The Timeout was completed, verifying the correct patient and procedure. The patient's procedural site was prepped and draped in the usual fashion. Local anesthetic was given subcutaneously to right radial region with Lidocaine 2%. Using a modified Seldinger technique, arterial access was obtained via the right radial artery, a 6Fr sheath was inserted by Teresa Right Coronary Artery selective angiography was then performed in multiple views using a 5 Fr. 4.0 Leicester catheter. Left Coronary Artery selective angiography was performed in multiple views using a 5 Fr. 4.0 Leicester catheter. Left Ventriculography was performed in PENA projection using a 5 Fr. Pigtail catheter. LV to AO pullback pressures were then recorded.The arterial sheath was pulled and a TR Band was applied for hemostasis CORONARY ANGIOGRAPHY DOMINANCE: Right Dominant LEFT HEART ASSESSMENT Left Ventricular Ejection Fraction: by LV Gram 65 % Normal LV wall motion Normal Left Ventricular systolic function Normal Left Ventricular systolic function LEFT MAIN: Angiographically normal LEFT ANTERIOR DESCENDING ARTERY: Angiographically normal CIRCUMFLEX ARTERY: Angiographically normal RIGHT CORONARY ARTERY: Angiographically normal COMPLICATIONS No Complications PROCEDURE MEDICATIONS Versed 1 mg IV Fentanyl 50 mcg IV Versed 1 mg IV Oxygen: 2 L/min via nasal cannula SUMMARY OF HEMODYNAMIC DATA Time AIR REST ECG 07:30:57 Art 187/80 (124) 08:50:11 AO 200/89 (131) SA 08:52:01 LV 202/14, 30 08:56:51 LV 180/18, 26 08:57:02 LV 170/13, 25 08:57:41 LV 191/14, 25 08:57:47 LVp 204/16, 25 08:57:50 AOp 199/94 (139) 08:57:55 ECG 09:13:54 AIR REST 09:18:57 Signed By Michelet Rodríguez MD On 04/26/2024 09:20:44 Michelet Rodríguez MD
== END 2024-04-26 10:36 | disposition home or self-care (01) ==
PROVIDERS: Nurse Practitioner Gerontology; PCP Nurse Practitioner Family; Visit Provider Internal Medicine Cardiovascular Disease
DX: R94.39 Abnormal result of other cardiovascular function study (principal); E78.2 Mixed hyperlipidemia; R06.09 Other forms of dyspnea; R00.2 Palpitations; F41.9 Anxiety disorder, unspecified; Z79.899 Other long term (current) drug therapy
CPT/HCPCS: 36415; 80048; 84703; 85025; 93458; 99152; 99153; J7040; Q9967; C1769; C1894

== ENCOUNTER → 2024-04-30 | Outpatient (CLI) | payer OTHER, SELFPAY ==
[2024-04-30 07:21] LABS: Mucous, Urine 0 SEEN /hpf (<or=2+); Red Blood Cells-Urine 0 SEEN /hpf (0-5)
[2024-04-30 08:00] LABS: Absolute Lymphocyte Count 1.31 X10^3/uL (0.83-4.51); Absolute Neutrophil Count 2.4 X10^3/uL (2.0-7.7); Basophil# 0.02 X10^3/uL; Basophil% 0.5 % (0-1); Eosinophil# 0.09 X10^3/uL; Eosinophils% 2.2 % (0-5); Hematocrit 44.3 % (37-47); Hemoglobin 14.2 g/dL (12.0-15.0); Lymphocyte # 1.31 X10^3/ul (0.83-4.51); Mean Corp Hgb Conc 32.1 g/dL (32-36); Mean Corpuscular Hgb 29.9 pg (27.0-32.0); Mean Corpuscular Volume 93.3 fL (81-99); Mean Platelet Vol. 11.1 fl (6.2-12.0); Monocyte# 0.31 X10^3/uL; Monocyte% 7.6 % (0-10); NRBC Flagged by Analyzer 0 % (0-5); Neutrophil # 2.35 X10^3/uL (2.7-7.7); Neutrophil % 57.5 % (47-70); Platelet Count 243 K/mm3 (150-450); RBC Distribution Width CV 11.9 % (11.6-14.6); RBC Distribution Width SD 41.1 fl (35.1-43.9); Red Blood Count 4.75 M/mm3 (4.2-5.4); White Blood Count 4.1 K/mm3 (4.4-11.0)
[2024-04-30 08:28] LABS: Microalbumin,Random Urine 6.3 mg/L (NO RANGE EST.); Microalbumin:Creatinine Ratio 4.8 mg/g CRE (<30 mg/g CRE)
[2024-04-30 08:52] LABS: Color, Urine Yellow (Yellow); Glucose, Dipstick Normal (Normal); Ketone-Dipstick Negative (Negative); Leukocyte Esterase-Dipstick 500 /ul (Negative); Nitrite-Dipstick Negative (Negative); Occult Blood-Urine 10 /ul (Negative); Protein-Dipstick 15 mg/dl (Negative); Specific Gravity, Urine 1.015 (1.002-1.030); Urine Bilirubin Dipstick Negative (Negative); Urine Clarity Clear (Clear); Urine Urobilinogen Normal (Normal)
[2024-04-30 08:54] LABS: Vitamin B12 1101 pg/mL (211-911); Vitamin D,25 Hydroxy 54.3 ng/mL
[2024-04-30 09:03] LABS: Squamous Epithelial Cells - UA 0-5 SEEN /hpf (5-10); White Blood Cells 10-25 SEEN /hpf (0-5)
[2024-04-30 09:06] LABS: Amorphous Sediment 2+; Bacteria 1+ /hpf (None Seen)
[2024-05-01 06:51] LABS: ALB/GLOB Ratio 1.1 RATIO (0.9-2.4); AST(SGOT) 12 U/L (15-37); Alanine Aminotransfer ALT/SGPT 19 U/L (13-56); Albumin, Serum 3.7 g/dL (3.2-5.0); Alkaline Phosphatase 69 U/L (45-117); Anion Gap 8 (5-15); BUN 16 mg/dL (7-18); BUN/Creat Ratio 22.8 RATIO (10-20); Calcium,Total 9.6 mg/dL (8.5-10.1); Chloride 103 mmol/L (98-107); Cholesterol 208 mg/dL (200); EST Glomerular Filtration Rate 91 mL/min (>60); Est Glom Filt Rate - Afr Amer 111 mL/min (>60); Globulin 3.5 g/dL (2.2-4.2); Glucose 95 mg/dL (74-106); High Density Lipoprotein 62 mg/dL; Potassium 3.7 mmol/L (3.5-5.1); Protein, Total 7.2 g/dL (6.4-8.2); Sodium Level 138 mmol/L (136-145); Triglycerides 96 mg/dL; Very Low Density Lipoprotein 19 mg/dL (5-40)
== END | disposition home or self-care (01) ==
LOC: LAB 07:11
PROVIDERS: PCP Nurse Practitioner Family; Referring Provider Internal Medicine; Visit Provider Internal Medicine
DX: E78.5 Hyperlipidemia, unspecified (principal); E55.9 Vitamin D deficiency, unspecified; R79.89 Other specified abnormal findings of blood chemistry; R03.0 Elevated blood-pressure reading, without diagnosis of hypertension
CPT/HCPCS: 36415; 80053; 80061; 81001; 82043; 82306; 82570; 82607; 85025

== ENCOUNTER → 2024-05-05 | Outpatient (CLI) | payer OTHER, SELFPAY ==
[2024-05-05 08:20] LABS: Erythrocyte Sedimentation Rate 15 mm/hr (0-30)
[2024-05-05 08:57] LABS: Rheumatoid Factor < 10.0 IU/mL (<15)
[2024-05-07 14:09] LABS: Anti-Nuclear Antibody Test Negative (.); Anti-dsDNA Ab <1 IU/mL (0-9); RNP Ab 0.4 AI (0.0-0.9); SJOGREN'S Anti-SS-A test < 0.2 AI (0.0-0.9); SJOGREN'S Anti-SS-B test < 0.2 AI (0.0-0.9); Smith Ab <0.2 AI (0.0-0.9)
== END | disposition home or self-care (01) ==
LOC: LAB 07:02
PROVIDERS: PCP Nurse Practitioner Family; Referring Provider Ophthalmology; Visit Provider Ophthalmology
DX: H16.229 Keratoconjunctivitis sicca, not specified as Sjogren's, unspecified eye (principal); H25.813 Combined forms of age-related cataract, bilateral; D31.31 Benign neoplasm of right choroid; L71.8 Other rosacea
CPT/HCPCS: 36415; 85652; 86038; 86225; 86235; 86431

== ENCOUNTER → 2024-05-10 | Outpatient (CLI) | payer OTHER, SELFPAY | END | disposition home or self-care (01) | LOC: CVS 08:57 | PROVIDERS: PCP Nurse Practitioner Family; Referring Provider Nurse Practitioner Gerontology; Visit Provider Nurse Practitioner Gerontology | DX: R03.0 Elevated blood-pressure reading, without diagnosis of hypertension (principal) | CPT/HCPCS: 93788 ==

== ENCOUNTER → 2024-05-13 | Outpatient (CLI) | payer OTHER, SELFPAY ==
[2024-05-13 15:29] LABS: Color, Urine Yellow (Yellow); Glucose, Dipstick Normal (Normal); Ketone-Dipstick Negative (Negative); Leukocyte Esterase-Dipstick 25 /ul (Negative); Nitrite-Dipstick Negative (Negative); Occult Blood-Urine Negative /ul (Negative); Protein-Dipstick Negative (Negative); Urine Bilirubin Dipstick Negative (Negative); Urine Clarity Clear (Clear); Urine Urobilinogen Normal (Normal)
== END | disposition home or self-care (01) ==
LOC: LAB 14:27
PROVIDERS: PCP Nurse Practitioner Family; Referring Provider Nurse Practitioner Family; Visit Provider Nurse Practitioner Family
DX: N39.0 Urinary tract infection, site not specified (principal)
CPT/HCPCS: 81002

== ENCOUNTER → 2024-08-19 | Outpatient (CLI) | payer OTHER, SELFPAY ==
--- NOTE | 2024-08-19 13:17 | MRI_ITS ---
STUDY: BILATERAL BREAST MR WITHOUT AND WITH CONTRAST REASON FOR EXAM: Female, 54 years old. Yearly breast cancer screening. TECHNIQUE: Multi-sequence multi-echo imaging of both breasts was performed with a dedicated breast coil. T1-weighted and T2-weighted images were performed before the administration of contrast. T1-weighted images were also performed after the intravenous administration of 13 mL of Clariscan contrast. COMPARISON: Prior breast MRI dated October 24, 2023, left breast ultrasound dated August 25, 2023 and bilateral mammogram dated August 25, 2023 FINDINGS: FINDINGS: Heterogeneously dense fibroglandular tissue with minimal background enhancement, left slightly greater than right. No abnormal enhancing masses or areas of non-mass enhancement. No enlarged or abnormal lymph nodes. No abnormality in the visualized regions of the chest or liver. MRI/Breast Bilateral W/O and W IMPRESSION: No abnormality on the breast MRI with contrast. Yearly screening mammogram, which may be alternated with breast MRI with contrast, would be appropriate for follow-up. Electronically Signed: Tien Garcia MD at 16:25 EDT ,
== END | disposition home or self-care (01) ==
LOC: MRI 13:16
PROVIDERS: PCP Nurse Practitioner Family; Referring Provider Obstetrics & Gynecology; Visit Provider Obstetrics & Gynecology
DX: R92.30 Dense breasts, unspecified (principal); N60.19 Diffuse cystic mastopathy of unspecified breast
CPT/HCPCS: 77049; A9575; A4216; C8908

== ENCOUNTER → 2025-10-25 | Outpatient (CLI) | payer OTHER, SELFPAY ==
--- NOTE | 2025-10-25 13:31 | MRI_ITS ---
PROCEDURE: BREAST BILATERAL W/O AND W 10/25/2025 REASON FOR EXAM: DENSE BREAST TISSUE Yearly breast cancer screening TECHNIQUE: Procedure Code: [id number] Modality: MR Procedure: BREAST BILATERAL W/O AND W CONTRAST: 13 mL of Clariscan COMPARISON: Breast MRIs dated 08/19/2024 and 10/24/2023 mammogram study dated 08/25/2023 was also reviewed. FINDINGS: TISSUE DENSITY: The breasts are heterogeneously dense, which may obscure small masses. Background Parenchymal Enhancement: Minimal RIGHT Breast: No suspicious mass or non-mass enhancement. LEFT Breast: No suspicious mass or non-mass enhancement. Other Findings: No suspicious axillary or internal mammary lymph nodes. Visualized portions of the thoracic and abdominal viscera are unremarkable. MRI/Breast Bilateral W/O and W IMPRESSION: OVERALL FINAL ASSESSMENT BI-RADS 0: INCOMPLETE - NEED ADDITIONAL IMAGING EVALUATION. RECOMMENDATION: Additional Views obtained/call backs An MRI does not replace ye sammy screening mammography. Digital screening mammogram is recommended at this time. Certain breast cancers and calcificatio ns can only be seen on mammograms and not MRIs. Reading Location: [id number]
== END | disposition home or self-care (01) ==
LOC: MRI 13:07 → OPMRI 13:08
PROVIDERS: PCP Internal Medicine; Referring Provider Obstetrics & Gynecology; Visit Provider Obstetrics & Gynecology
DX: R92.30 Dense breasts, unspecified (principal)
CPT/HCPCS: 77049; A9575; A4216; C8908

== ENCOUNTER → 2025-11-03 | Outpatient (CLI) | payer OTHER, SELFPAY ==
--- NOTE | 2025-11-03 15:30 | BD_ITS ---
PROCEDURE: DEXA BONE DENSITY STUDY 11/03/2025 REASON FOR EXAM: OSTEOPOROSIS F, age 55 y/o . Postmenopausal. TECHNIQUE: Procedure Code: BDDBD Modality: DX Procedure: DEXA BONE DENSITY STUDY COMPARISON: February 04, 2023. FINDINGS: BMD and T-SCORES Lumbar spine: 0.846 g/cm2, T-score -2.3 Levels: L1 through L4 Change from prior: Improvement of 3.5%. Left femoral neck: 0.541 g/cm2, T-score -2.8 Femoral neck comparison data not recommended for monitoring change. Left total hip: 0.752 g/cm2, T-score -1.6 Change from prior: Improvement of 5.8%. Right femoral neck: 0.597 g/cm2, T-score -2.3 Femoral neck comparison data not recommended for monitoring change. Right total hip: 0.821 g/cm2, T-score -1.0 Change from prior: Improvement of 3.3%. The World Health Organization has defined the following categories based on bone density: Normal bone density: T-score equal to or greater than -1.0 Osteopenia: T-score between -1.0 and -2.5 Osteoporosis: T-score equal to or less than -2.5 FRAX (or Comparable) Fracture Risk Assessment: 10 Year Probability of Fracture: Major Osteoporotic Fracture: 29% Hip Fracture: 7.7% (Note: FRAX is not to be reported in setting of normal range bone density, osteoporosis on DEXA, known history of osteoporosis, prior osteoporotic hip or vertebral fracture, or for any patient undergoing pharmacological treatment for bone loss.) The National Osteoporosis Foundation (NOF) recommends pharmacological treatment for patients with a FRAX 10-year risk of 3% or higher for a hip fracture, or 20% or higher for a major osteoporotic fracture, to prevent osteoporosis and reduce fracture risk. The patient does meet the pharmacological treatment recommendations for prevention of osteoporosis. BD/Dexa Bone Density Study IMPRESSION: OSTEOPENIA. Recommend follow-up as clinically warranted. Reading Location: [id number]
--- NOTE | 2025-11-03 16:00 | BI_ITS ---
EXAM: SCRN MAMM (CAD)W/TASIA BILAT DATE: 11/03/2025 CLINICAL HISTORY: F, Age 55 y/o , SCREEN No family history. TECHNIQUE: Procedure Code: [id number] Modality: MG Procedure: SCRN MAMM (CAD)W/TASIA BILAT COMPARISON: Prior exam(s) dated August 25, 2023.. FINDINGS: TISSUE DENSITY: The breasts are extremely dense, which lowers the sensitivity of mammography. Bilateral Breast Mammographic Findings: No significant masses, calcifications or other abnormalities are identified. Stable bilateral scattered calcifications. No focal cluster is seen. No suspicious masses, areas of developing architectural distortion, or suspicious calcifications. There has been no significant interval change. BI/SCRN MAMM (CAD)W/TASIA BILAT IMPRESSION: Stable bilateral screening mammogram. OVERALL FINAL ASSESSMENT BI-RADS 2: BENIGN RECOMMENDATION: Routine annual follow-up in 1 Year Additional Recommendation none A letter with findings and recommendations will be mailed to the patient. Reading Location: [facility]
== END | disposition home or self-care (01) ==
PROVIDERS: PCP Internal Medicine; Referring Provider Obstetrics & Gynecology; Visit Provider Obstetrics & Gynecology
DX: Z12.31 Encounter for screening mammogram for malignant neoplasm of breast (principal); Z78.0 Asymptomatic menopausal state; M81.0 Age-related osteoporosis without current pathological fracture
CPT/HCPCS: 77063; 77067; 77080